=== PATIENT | female | born 1985 | race Caucasian/White ===

== ENCOUNTER → 2018-03-05 13:40 | Outpatient (CLI) | payer OTHER, SELFPAY ==
--- NOTE | 2018-03-05 13:49 | CT_ITS ---
STUDY: CT CHEST WITHOUT CONTRAST REASON FOR EXAM: Female, 32 years old. History of cough and possible pneumonia. RADIATION DOSAGE (If Supplied By Facility): CTDIvol = ( 7.77 ) mGy, DLP = ( 277.48 ) mGycm TECHNIQUE: Transaxial imaging was performed without the administration of intravenous contrast material. Multiplanar coronal and sagittal images were reformatted. Individualized dose optimization techniques were used for this CT. COMPARISON: Comparison is made with prior study dated May 06, 2016. FINDINGS: Small bilateral benign-appearing axillary lymph nodes. The lungs are normal. There is no demonstrated pleural abnormality. Normal heart and pericardium. Normal mediastinum. Normal hilar regions. Normal unenhanced pulmonary arteries. Normal aorta arch and descending thoracic aorta. Normal osseous structures. There is no demonstrated abnormality of the visualized upper abdomen. CT/Chest without Contrast IMPRESSION: Normal unenhanced CT Chest examination. Electronically Signed: Francisco Truong MD at 14:35 EST Tel [phone], Service support ,
== END ==
PROVIDERS: Family Provider Family Medicine; PCP Family Medicine; Referring Provider Family Medicine; Visit Provider Family Medicine
DX: J18.9 Pneumonia, unspecified organism (principal)
CPT/HCPCS: 71250

== ENCOUNTER → 2019-04-15 | Outpatient (CLI) | payer OTHER, SELFPAY ==
[2019-04-19 15:09] LABS: HPV APTIMA, High Risk Negative (Negative)
== END | disposition home or self-care (01) ==
PROVIDERS: PCP Family Medicine; Referring Provider Obstetrics & Gynecology; Visit Provider Obstetrics & Gynecology
DX: Z12.4 Encounter for screening for malignant neoplasm of cervix (principal)
CPT/HCPCS: 87624; 88175; G0145

== ENCOUNTER 2022-07-19 05:15 | Emergency (ER) | payer OTHER, SELFPAY ==
[2022-07-19 05:16] VITALS: BP 110/68; PULSE 62; RESP 16; TEMP 36.5; O2SAT 97; BMI 25.8
[2022-07-19 05:53] VITALS: BP 110/68; PULSE 62; RESP 16; TEMP 36.5; O2SAT 97
--- NOTE | 2022-07-19 05:54 | EX.ED.VIS.EY ---
HPI History of Present Illness Chief Complaint: Eye Problem Narrative Narrative: Patient presents with bilateral eye irritation. Patient started with sore throat on Thursday. She was seen at urgent care that day. They did strep test which was negative. It sounds like they gave her a dose of Decadron once. Her sore throat got better but is now starting to come back. He is not having fevers or coughing. She does have nasal congestion runny nose. About a day after she was seen she started to get irritation in her eye. It started in her right eye. She had been out at a baseball game with her children. The next day that both eyes were involved. They are tearing. They are burning and itching a bit. They are not really having visual loss. They do have some discharge. She states that 2 or 3 days ago her eyes were swollen shut. But she can open them well now. She was seen again in urgent care. They gave her ofloxacin eyedrops. But she is wondering if these might be more irritating to her eyes. She had an issue with eye irritation from Polytrim eyedrops when she was a child. Patient also works as a teacher music. She did not go to school yesterday but reportedly 5 children in her class were out with some issues that she thinks was related to eyes. Patient has a history of some allergies and does have nasal congestion but her symptoms overall seem different to her than allergies. [facility] Medical History Abnormal chest CT Asthma Cough Gastroesophageal reflux Migraines paresthesia right ulnar hand Pleurisy Pleuritic chest pain Pneumonia Seasonal allergic rhinitis Home Medications albuterol sulfate 90 mcg/actuation aerosol inhaler (ProAir HFA) 2 puff inhalation Q6H PRN breathing 06/22/17 [History Last Taken Unknown] fluticasone propionate 50 mcg/actuation nasal spray,suspension (Flonase Allergy Relief) 1 spray intranasal QDAY 06/22/17 [History Last Taken Unknown] loratadine 10 mg tablet (Allergy Relief (loratadine)) 10 mg PO QDAY 06/22/17 [History Last Taken Unknown] norethindrone-e.estradiol triphasic 0.5 mg/0.75 mg/1 mg-35 mcg tablet (Pirmella) 1 tab PO QDAY 06/22/17 [History Last Taken Unknown] omeprazole 40 mg capsule,delayed release 40 mg PO QDAY 06/22/17 [History Last Taken Unknown] diclofenac sodium 0.1 % eye drops 1 drp EACH EYE Q6H 3 days #2.5 mL 07/19/22 [Rx Last Taken Unknown] Allergy/AdvReac Type Severity Reaction Status Date / Time polymyxin B sulfate Allergy Swelling Verified 12/27/15 11:26 [From Polytrim] trimethoprim [From Polytrim] Allergy Swelling Verified 12/27/15 11:26 Family History Father Diabetes Hypertension Grandmother Breast cancer Grandfather Heart disease CVA (cerebral vascular accident) Grandmother Myeloma Grandfather Hypertension Surgical History History of bronchoscopy Social History Smoking Status: Never smoker second hand exposure: No alcohol intake: never substance use type: does not use ROS ROS ED Constitutional Constitutional ED: Denies chills, fever(s) or sweats Eyes Eyes: Reports other Details: History of present illness ENT ENT ED: Reports rhinorrhea, sore throat and other Details: Nasal congestion also. See history of present illness. Cardiovascular Cardiovascular: Denies chest pain Respiratory/Chest Respiratory/Chest: Denies cough or dyspnea Gastrointestinal Gastrointestinal: Denies nausea or vomiting Musculoskeletal Musculoskeletal: Denies myalgias Integumentary Denies rash Neurologic Neurologic: Denies headache(s) Hematologic/Lymphatic Hematologic/Lymphatic: Denies easy bleeding or easy bruising Allergic/Immunologic Allergic/Immunologic ED: Denies urticaria EXAM Physical Exam Narrative Exam Narrative: Patient is awake alert. No acute distress. Sitting comfortably in bed. HEENT shows no erythema or rash anywhere on her face ears or nose. No vesicles. There is some mild nasal congestion. Throat has minimal erythema but no exudate or swelling. Voice is normal. No sinus tenderness. Eyes do show bilateral conjunctival injection and mild inflammation. There is increased tearing. There is no actual discharge right now although she has had some. I see no stye. Cornea looks quite clear. Pupil is normal reactive to light and accommodates. There is no notable photophobia using a light. Neck is supple without lymphadenopathy Lungs are clear and breathing is easy and unlabored. Saturations are normal at 97% on room air showing no hypoxia. No peripheral rashes are noted. Const Vital Signs: 07/19/22 05:16 07/19/22 05:53 Temperature 97.7 F L 97.7 F L Temperature Source Oral Oral Pulse Rate 62 62 Respiratory Rate 16 16 Blood Pressure 110/68 110/68 Blood Pressure Mean 82 82 Pulse Ox 97 97 Oxygen Delivery Method Room Air Room Air MDM MDM MDM Narrative Medical decision making narrative: I do not see any indication of bacterial conjunctivitis. She has no known risk factor for this. She evidently has multiple children that she is exposed to who may have similar symptoms although were not 100% sure of that. She is not having significant discharge. She has some but it is mild. It is possible her symptoms are allergic but it sounds like it started in her right eye and then moved to both eyes. My suspicion is that this is likely a viral conjunctivitis. She may be also having increased irritation due to the antibiotic drops. As this is not likely bacterial I do not think she needs the antibiotic drops. She is not having visual changes. We will recheck her for strep. It is very possible she has been exposed to this. Evidently she and her whole family had strep about a month and a half ago and were on antibiotics. But her symptoms had resolved. As this is most likely viral, her symptoms will resolve with just symptomatic treatment. We may try some diclofenac drops to see if that will ease the inflammatory changes. Discharge Plan Triage Chief Complaint: Eye Problem ED Provider: Carl Wilkinson Dx/Rx/DC Orders Clinical Impression: Viral conjunctivitis, both eyes, URI, acute Instructions: ED Conjunctivitis, Viral, ED URI, Viral, No Abx (Adult) Prescriptions: New diclofenac sodium 0.1 % drops 1 drp EACH EYE Q6H 3 Days Qty: 2.5 0RF No Action albuterol sulfate [ProAir HFA] 90 mcg/actuation HFA aerosol inhaler 2 puff INHALATION Q6H PRN (Reason: breathing) norethin-e.estradiol triphasic [Pirmella] 0.5/0.75/1 mg- 35 mcg tablet 1 tab PO QDAY omeprazole 40 mg capsule,delayed release(DR/EC) 40 mg PO QDAY fluticasone propionate [Flonase Allergy Relief] 50 mcg/actuation spray,suspension 1 spray INTRANASAL QDAY loratadine [Allergy Relief (loratadine)] 10 mg tablet 10 mg PO QDAY Primary Care Provider: Josh Rolle Referrals: Hansel Vicente MD [Med Staff - Active Staff] - 2 Days for wound check Josh Rolle MD [Primary Care Provider] - 3-5 Days if not improving Disposition Disposition: Home, Self Care
[2022-07-19] MEDS: Tetracaine 0.5% Ophthalmic Bottle 1 DRP OPHTHALMIC (06:23)
[2022-07-19 06:27] VITALS: BP 102/68; PULSE 63; RESP 16; TEMP 36.5; O2SAT 98
[2022-07-19] MEDS: dexAMETHasone 4 MG Tablet 10 MG PO (06:56)
[2022-07-19 06:59] VITALS: BP 104/73; PULSE 73; RESP 16; TEMP 36.1; O2SAT 97
== END 2022-07-19 07:03 | disposition home or self-care (01) ==
PROVIDERS: Emergency Provider Emergency Medicine; PCP Family Medicine; Visit Provider Emergency Medicine
DX: J06.9 Acute upper respiratory infection, unspecified (principal); B30.9 Viral conjunctivitis, unspecified; J45.909 Unspecified asthma, uncomplicated
CPT/HCPCS: 87880; 99283

== ENCOUNTER 2022-09-01 08:55 | Emergency (ER) | payer OTHER, SELFPAY ==
[2022-09-01 08:56] VITALS: BP 133/86; PULSE 57; RESP 16; TEMP 36.8; O2SAT 100; BMI 28.2
--- NOTE | 2022-09-01 09:07 | EKG12_ITS ---
Test Reason : CP Blood Pressure : / mmHG Vent. Rate : 062 BPM Atrial Rate : 062 BPM P-R Int : 206 ms QRS Dur : 078 ms QT Int : 388 ms P-R-T Axes : 061 038 036 degrees QTc Int : 393 ms Normal sinus rhythm with sinus arrhythmia Normal ECG Confirmed by AISHA CARRASCO, CUCA ([id number]), research editor ROSIBEL ZAVALA ([id number]) on 09/03/2022 11:24:08 AM Referred By: LUKASZ Confirmed By:NUSRAT LEONARD MD
--- NOTE | 2022-09-01 09:07 | RAD_ITS ---
STUDY: X-RAY CHEST REASON FOR EXAM: Female, 36 years old. Chest pain and chest tightness. TECHNIQUE: Single AP portable view of the chest. COMPARISON: None. FINDINGS: EKG electrodes are seen. The lungs are clear and expanded. There is no demonstrated pleural abnormality. Normal size heart. Normal mediastinum and ronald. Normal visualized pulmonary arteries. Normal visualized aortic arch and descending thoracic aorta. Normal visualized thoracic spine. Normal visualized ribs, clavicles, and shoulders. There is no demonstrated abnormality of the visualized soft tissue structures of the upper abdomen. RAD/Chest 1 View (Portable) IMPRESSION: Normal x-ray examination of the chest. Electronically Signed: Francisco Truong MD at 9:34 EDT ,
--- NOTE | 2022-09-01 09:08 | ED.VIS.CHEST ---
HPI History of Present Illness Chief Complaint: Chest Pain Informant: patient and spouse/S.O. Onset/Context/Timing Onset: Today and Hours Activity at onset: gradual Timing: Intermittent Quality: Positive for Dull and Tightness Location: Left Parasternal and Left Chest Current Severity: Mild Maximum Severity: Mild Worsened By: Nothing Relieved By: Nothing Associated Symptoms: Negative for Nausea, Vomiting, Diaphoresis, Dyspnea, Cough, Fever, Lightheadedness, Acid Reflux or Palpitations Narrative Narrative: 36-year-old female without any significant past medical or surgical history. No prior history of DVT or PE. Prior history of pleurisy. Over the last week she flew to [place] and took [address] back. Denies any calf pain or swelling. No hemoptysis. Today she feels tightness and discomfort in her left chest. No radiation. Nothing particular makes the pain better or worse. She does not feel short of breath. She has had no hemoptysis. No cough or fever. Prior Similar Symptoms: No Recent Illness/Hospitalization: No CVD Risk Factors: Negative for Hypertension, Diabetes, Hypercholesterolemia, Family History 1' </=55 or Smoking PE Risk Factors: Positive for Recent Travel/Surgery; Negative for Recent Immobilization, Prior DVT or PE, Cancer or OCP + Smoking + >/=35 TAD Risk Factors: Negative for Marfan's Syndrome [facility] Medical History Abnormal chest CT Asthma Cough Gastroesophageal reflux Migraines paresthesia right ulnar hand Pleurisy Pleuritic chest pain Pneumonia Seasonal allergic rhinitis Medical History no medical history Home Medications albuterol sulfate 90 mcg/actuation aerosol inhaler (ProAir HFA) 2 puff inhalation Q6H PRN breathing 06/22/17 [History Last Taken Unknown] fluticasone propionate 50 mcg/actuation nasal spray,suspension (Flonase Allergy Relief) 1 spray intranasal QDAY 06/22/17 [History Last Taken Unknown] loratadine 10 mg tablet (Allergy Relief (loratadine)) 10 mg PO QDAY 06/22/17 [History Last Taken Unknown] norethindrone-e.estradiol triphasic 0.5 mg/0.75 mg/1 mg-35 mcg tablet (Pirmella) 1 tab PO QDAY 06/22/17 [History Last Taken Unknown] omeprazole 40 mg capsule,delayed release 40 mg PO QDAY 06/22/17 [History Last Taken Unknown] diclofenac sodium 0.1 % eye drops 1 drp EACH EYE Q6H 3 days #2.5 mL 07/19/22 [Rx Last Taken Unknown] Allergy/AdvReac Type Severity Reaction Status Date / Time polymyxin B sulfate Allergy Swelling Verified 09/01/22 09:00 [From Polytrim] trimethoprim [From Polytrim] Allergy Swelling Verified 09/01/22 09:00 Family History Father Diabetes Hypertension Grandmother Breast cancer Grandfather Heart disease CVA (cerebral vascular accident) Grandmother Myeloma Grandfather Hypertension Surgical History History of bronchoscopy Social History Smoking Status: Never smoker second hand exposure: No alcohol intake: never substance use type: does not use ROS ROS ED ROS Narrative Chest discomfort. Review of Systems ROS Unobtainable: Denies due to encephalopathy Constitutional Constitutional ED: Denies chills or fever(s) Eyes Eyes: Reports none ENT ENT ED: Denies ear pain, rhinorrhea or sore throat Cardiovascular Cardiovascular: Reports as per HPI and chest pain; Denies orthopnea, palpitations, paroxysmal nocturnal dyspnea or racing heartbeat Respiratory/Chest Respiratory/Chest: Denies cough, dyspnea, dyspnea on exertion, orthopnea, paroxysmal nocturnal dyspnea or sputum Gastrointestinal Gastrointestinal: Denies abdominal pain Genitourinary Genitourinary ED: Denies dysuria or hematuria Integumentary Denies abscess Neurologic Neurologic: Denies headache(s) Psychiatric Psychiatric: Denies anxiety Endocrine Endocrinology: Denies cold intolerance Hematologic/Lymphatic Hematologic/Lymphatic: Denies easy bleeding or easy bruising Allergic/Immunologic Allergic/Immunologic ED: Denies mouth swelling or tongue swelling EXAM Physical Exam Narrative Exam Narrative: Well-appearing 36-year-old female. Vital signs are stable and she is afebrile. Patient does not look septic toxic or in distress. Significant other at bedside. H EENT exam is unremarkable. Neck is nontender. Lungs are clear equal symmetrical bilaterally. Heart regular rate and rhythm no murmur. Chest wall nontender. No ecchymosis or bruising. No redness or warmth. Abdomen is soft and nontender. Moving all 4 extremities. Calves are nontender without edema or cords. No swelling. Radial pulses are equal symmetrical. Back is nontender neurologic exam she is awake alert. No focal motor deficits. Very benign exam. Pulse ox 100% on room air no hypoxia. Const Vital Signs: 09/01/22 08:56 09/01/22 09:11 Temperature 98.2 F Temperature Source Oral Pulse Rate 57 L Respiratory Rate 16 Blood Pressure 133/86 H Blood Pressure Mean 101 Pulse Ox 100 Oxygen Delivery Method Room Air Room Air Positive well nourished and well developed; Negative for obese, cachectic, contractures or unkempt General Appearance ED: well developed and NAD; Negative for unkempt, cachectic, contractures or pallor Nutritional Appearance: Negative for cachectic or obese HEENT Reports moist mucous membranes normocephalic and atraumatic; Negative for trauma or tenderness Eyes PERRL and EOMs intact bilaterally General Eye ED: Negative for pale conjunctiva or scleral icterus Neck no lymphadenopathy, supple and no JVD General: Negative for tenderness Chest Wall inspection of chest normal and palpation of chest normal Chest: Negative for tenderness Resp normal respiratory effort and clear to auscultation bilaterally Effort and Inspection: Negative for respiratory distress Auscultation: Negative for rales, rhonchi or wheezes Cardio regular rate, regular rhythm, S1 normal heart sound, S2 normal heart sound and no murmurs Peripheral Pulses: pulses 2+ throughout GI normal to inspection, nondistended, normoactive bowel sounds, soft to palpation, non-tender, non-distended and no masses Auscultation: Negative for hyperactive bowel sounds Back/Spine no CVA tenderness and no thoracic nor lumbar tenderness General Back: Negative for CVA tenderness Cervical Spine: Negative for cervical spine tenderness Extremity normal to inspection General Extremety ED: Negative for edema General Extremity: Negative for edema Neuro oriented x3 and CN's II-XII intact bilaterally Sensorium / Orientation: awake, alert, oriented to person, oriented to place and oriented to time; Negative for confused, lethargic or stuporous Motor Exam: strength 5/5 throughout Psych mental status grossly normal Appearance: Negative for unkempt Attitude: No agitated Mood & Affect: Negative for depressed, anxious or tearful Skin no rashes or lesions noted and no wounds General Skin Exam: Negative for jaundice or pallor Rashes: No rashes noted Trauma: Negative for abrasion or laceration Heart Score History: Slightly/Non-Suspicious ECG: Normal Age: </= 45 years Risk Factors: No Risk Factors Troponin: </= Normal Limit Score: 0 MDM MDM MDM Narrative Medical decision making narrative: 36-year-old female no seen past medical history with atypical left-sided, nonreproducible chest discomfort. Vital signs are stable. Unlikely to be cardiac given her age and no significant past medical history or risk factors. She is a non-smoker. Unlikely to be a pulmonary embolus but possible due to her recent travel without her only risk factor and she has never had a DVT or PE. She is not on any hormone replacement or control pills. Possibly could be pleurisy but is not really pleuritic in nature. There is no reproducible chest wall pain. She has no symptoms or signs of an infection at this time. Cardiac work-up will be done. She will have a D-dimer. Repeat exam patient is doing well at 10:40 AM. She and her went over all of her test results. Clinically looks good. I do not think she needs any further testing. I explained to them that this this may be pleurisy. Her musculoskeletal. Tylenol Motrin for pain. Return if worse or follow-up if not improving. History & Record Review Discussion w/independent historian: Patient Additional record(s) reviewed:: Prior inpatient record, Prior outpatient record, Prior ED visit and Prior labs Lab Data Attestation: I reviewed the patient's lab results. Lab results narrative: CBC unremarkable. White count of 6.7. H&H of 14 and 41. Platelets 209. Electrolytes show a gap of 2. Normal BUN and creatinine. Glucose is 87. Troponin is less than 3. test negative. D-dimer is 0.3 and negative. Labs: Laboratory Results - last 24 hr 09/01/22 09:00 WBC 6.7 RBC 4.60 Hgb 14.5 Hct 41.7 MCV 90.7 MCH 31.5 MCHC 34.8 RDW Std Deviation 39.8 RDW Coeff of Joy 12.1 Plt Count 209 MPV 8.8 Immature Gran % (Auto) 0.400 Neut % (Auto) 56.0 Lymph % (Auto) 35.9 [place] % (Auto) 6.6 Eos % (Auto) 0.7 Baso % (Auto) 0.4 Absolute Neuts (auto) 3.8 Absolute Lymphs (auto) 2.41 Nucleated RBC % 0 D-Dimer Quant (PE/DVT) 0.30 Sodium 137 Potassium 3.7 Chloride 109 H Carbon Dioxide 26.0 Anion Gap 2 L BUN 14 Creatinine 0.69 Estim Creat Clear Calc 93.24 Est GFR (MDRD) Af Amer 124 Est GFR (MDRD) Non-Af 102 BUN/Creatinine Ratio 20.4 H Glucose 87 Calcium 9.1 Troponin I High Sens < 3 L Serum , Qual NEGATIVE Radiography Chest X-Ray - ED: Read by ED Physician, Read by Radiologist, Heart, Lungs, Mediastinum, Bony Structures and No Acute Disease Diagnostic Testing: Clinical Impression(s) from Imaging Studies Chest X-Ray 09/01/22 09:07 IMPRESSION: Normal x-ray examination of the chest. Electronically Signed: Francisco Truong MD at 9:34 EDT , Chest x-ray, portable, single view interpreted both by myself and the radiologist shows no acute abnormality. Normal lungs bilaterally. Normal cardiac silhouette mediastinum. No infiltrate. No pneumothorax. No acute bony abnormalities. Rhythm Strip Rhythm Strip: Sinus Rhythm Rate: 62 Ectopy: None EKG Initial EKG: Attestation: I personally reviewed and interpreted this EKG as follows: Interpretation: Sinus Rhythm and No Acute Injury Pattern Comments: Normal sinus rhythm rate of 62 no acute signs of AL or ischemia. No [id number]. No old EKG available. Prior EKG tracings: available for review Discharge Plan Triage Chief Complaint: Chest Pain ED Provider: Karthikeyan Vasquez Dx/Rx/DC Orders Clinical Impression: Chest pain Instructions: ED Chest Pain, Uncertain Cause Prescriptions: No Action albuterol sulfate [ProAir HFA] 90 mcg/actuation HFA aerosol inhaler 2 puff INHALATION Q6H PRN (Reason: breathing) norethin-e.estradiol triphasic [Pirmella] 0.5/0.75/1 mg- 35 mcg tablet 1 tab PO QDAY omeprazole 40 mg capsule,delayed release(DR/EC) 40 mg PO QDAY fluticasone propionate [Flonase Allergy Relief] 50 mcg/actuation spray,suspension 1 spray INTRANASAL QDAY loratadine [Allergy Relief (loratadine)] 10 mg tablet 10 mg PO QDAY diclofenac sodium 0.1 % drops 1 drp EACH EYE Q6H 3 Days Qty: 2.5 0RF Primary Care Provider: Josh Rolle Referrals: Josh Rolle MD [Primary Care Provider] - 1 Week if not improving Activity Restrictions/Additional Instructions: All your test today were normal including blood counts, electrolytes, kidney function, heart enzymes and D-dimer which was negative which goes against this being a blood clot. Chest x-ray and EKG were normal. Motrin and Tylenol for discomfort. Follow-up if not improving. Disposition Disposition: Home, Self Care
[2022-09-01 09:17] LABS: Absolute Lymphocyte Count 2.41 X10^3/uL (0.83-4.51); Absolute Neutrophil Count 3.8 X10^3/uL (2.0-7.7); Basophil# 0.03 X10^3/uL; Basophil% 0.4 % (0-1); Eosinophil# 0.05 X10^3/uL; Eosinophils% 0.7 % (0-5); Hematocrit 41.7 % (37-47); Hemoglobin 14.5 g/dL (12.0-15.0); Lymphocyte # 2.41 X10^3/ul (0.83-4.51); Lymphocyte % 35.9 % (19-41); Mean Corp Hgb Conc 34.8 g/dL (32-36); Mean Corpuscular Hgb 31.5 pg (27.0-32.0); Mean Corpuscular Volume 90.7 fL (81-99); Mean Platelet Vol. 8.8 fl (6.2-12.0); Monocyte# 0.44 X10^3/uL; Monocyte% 6.6 % (0-10); NRBC Flagged by Analyzer 0 % (0-5); Neutrophil # 3.75 X10^3/uL (2.7-7.7); Platelet Count 209 K/mm3 (150-450); RBC Distribution Width CV 12.1 % (11.6-14.6); RBC Distribution Width SD 39.8 fl (35.1-43.9); White Blood Count 6.7 K/mm3 (4.4-11.0)
[2022-09-01 09:44] LABS: Internal QC Validated? YES +Cl - CLEAR BKGD; Pregnancy, Serum, hCG Quali. NEGATIVE Negative
[2022-09-01 09:50] LABS: Anion Gap 2 (5-15); BUN 14 mg/dL (7-18); BUN/Creat Ratio 20.4 RATIO (10-20); Calcium,Total 9.1 mg/dL (8.5-10.1); Chloride 109 mmol/L (98-107); Creatinine, Serum 0.69 mg/dL (0.55-1.02); EST Glomerular Filtration Rate 102 mL/min (>60); Est Glom Filt Rate - Afr Amer 124 mL/min (>60); Estimated Creatinine Clearance 93.24 ml/min; Glucose 87 mg/dL (74-106); Potassium 3.7 mmol/L (3.5-5.1); Sodium Level 137 mmol/L (136-145); Troponin-I HS < 3 pg/mL (3.0-54.0)
[2022-09-01 11:24] VITALS: BP 126/78; PULSE 67; RESP 14; TEMP 36.6; O2SAT 99
--- NOTE | 2022-09-01 14:22 | CHAPLAIN ---
Type of Pastoral Visit _x__ Initial Visit ___ Follow-up Visit ___ On-call Visit ___ General Patient Visit ___ Spiritual Assessment ___ Family Conference ___ Bereavement ___ Rapid Response ___ Code Blue ___ Other (describe below) Pastoral Care Referral From _x__ Patient _x_ Family ___ Nurse ___ Physician ___ Curb And Gutter Laborer ___ Regrinder Operator ___ Other (describe below) Sacrament/Intervention _x__ Active listening ___ Anointing ___ Gnosticist ___ Bereavement ___ Communion ___ Bel exploration ___ ___ Life review ___ Prayer ___ Reconciliation ___ Sacrament of Sick _x__ Supportive presence ___ Wedding ___ Other (describe below) Pastoral Comments met with patient and spouse as pt is being discharged; offer of presence and support received well but pt is glad to be going home and have potential health issues ruled out at this time
== END 2022-09-01 11:26 | disposition home or self-care (01) ==
PROVIDERS: Emergency Provider Emergency Medicine; PCP Family Medicine; Visit Provider Emergency Medicine
DX: R07.9 Chest pain, unspecified (principal); J45.909 Unspecified asthma, uncomplicated
CPT/HCPCS: 71045; 80048; 84484; 84703; 85025; 85379; 93005; 99284

== ENCOUNTER → 2025-01-19 | Outpatient (CLI) | payer SELFPAY ==
--- NOTE | 2025-01-19 14:21 | RAD_ITS ---
PROCEDURE: CHEST PA AND LATERAL 01/19/2025 REASON FOR EXAM: COUGH TECHNIQUE: Procedure Code: RADCXR Modality: DX Procedure: CHEST PA AND LATERAL COMPARISON: Portable chest, 09/01/2022. FINDINGS: There is bilateral perihilar peribronchial thickening consistent with viral pneumonia or acute bronchitis. There is no lobar consolidation or pleural effusion. The heart borders mediastinum and pulmonary vascular pattern are normal. The upper abdominal bowel gas pattern is normal. There are no bony abnormalities of the chest. RAD/Chest PA and Lateral IMPRESSION: Findings consistent with viral pneumonia or acute bronchitis. Reading Location: [place] [id number]
--- OUTSIDE RECORDS SUMMARY | 2025-01-19 19:12 | XMS RPT_ITS | CCD ---
Author Organization [facility] Inform ion Partnership [employer] [facility] Care Team Providers Care Art Studio Teacher Name Role Phone Natalya Sandoval LPN Unavailable UnavailKarthikeyan Le Attending Unavailable Brendan Rolle Primary Care Unavailable Brendan Rolle Primary Care Unavailable Carl Wilkinson Attending Unavailable Brendan Rolle MD Primary Care Provider [phone] BRENDAN ROLLE Primary Care Unavailable SELF Referring Unavailable MONIE ROSAS Attending Unavailable BRENDAN ROLLE Primary Care Unavailable Allergies Allergy Classification Reported Allergen(s) Allergy Type Date of Onset Reaction(s) Facility (2 sources) Lidocaine; Translations: [LIDOCAINE] Drug Allergy 6 shaking, passing out - local anesthetics (varghese - lidocaine) [facility] Work Phone: (1 source) Polymyxin B / Trimethoprim Drug Allergy 6 red itchy eyes [facility] Work Phone: (1 source) Trimethoprim Drug Allergy 3 Swelling [facility] (2 sources) polymyxin B sulfate; Translations: [polymyxin B sulfate] Allergy to substance 3 [facility] (1 source) Trimethoprim Drug Allergy 3 [facility] Repository (2 sources) Lidocaine; Translations: [LIDOCAINE HCL] Drug Allergy 8 Anaphylaxis [facility] (2 sources) Polymyxin B / Trimethoprim; Translations: [POLYMYXIN B SULF-TRIMETHOPRI M] Drug Allergy 8 Swelling [facility] Work Phone: Medications Current Medications Medication Drug Class(es) Dates Sig (Normalized) Sig (Original) [id number] actuat albuterol 0.09 mg/actuat metered dose inhaler (3 sources) beta2-Adrenergic Agonist Start: 06-22-2017 take 1 puff(s) by inhalation every six hours Albuterol Sulfate (Proair Hfa) 90 mcg/actuation HFA aerosol inhaler Active 2 PUFF INHALATION EVERY 6 HOURS June 22, 2017 12:00am Start: 02-04-2016 take 2 puff(s) by in halation every four hours as needed PROAIR HFA 108 (90 Base) MCG/ACT AERS INH 2 puffs q4h as needed ALBUTEROL SULFATE [id number] Natalya Sandoval MARKETING CONSULTANT Start: 03-03-2009 take 1-2 puff(s) by inhalation every four hours as needed ALBUTEROL 90 MCG/ACTUATION AEROSOL INHALER 1-2 puffs every 4 hours as needed for wheezes 1 0 03/03/2009 Active cholecalciferol 0.05 mg oral capsule (1 source) Vitamin D Start: 05-27-2013 take 1 capsule by mouth once daily Cholecalciferol, Vitamin D3, 2,000 unit cap Take 1 capsule by mouth once daily. 90 capsule 4 05/27/2013 Active diclofenac sodium 1 mg/ml ophthalmic solution (1 source) Nonsteroidal Anti-inflammatory Drug Start: 07-19-2022 Diclofenac Sodium Active 1 DRP EACH EYE EVERY 6 HOURS 2.5 3 July 19, 2022 12:00am drospirenone / Ethinyl Estradiol / levomefolate (1 source) Progestin, Estrogen Start: 11-22-2013 take 1 tablet by mouth once daily drospirenone-e.estrad iol-lm.FA (BEYAZ) 3-0.02-0.451 mg (24) tab Take 1 tablet by mouth once daily. 90 tablet 3 11/22/2013 Active Norethin-E.Estradiol Triphasic (5 sources) Estrogen Start: 06-22-2017 take 1 tablet by mouth once daily Norethin-E.Estradiol Triphasic (Pirmella) 0.5/0.75/1 mg- 35 mcg tablet Active 1 TABLET PO daily June 22, 2017 12:00am Start: 02-12-2016 take 1 tablet by adam th once daily PIRMELLA 7/7/7 0.5/0.75/1-35 MG-MCG TABS One tablet by mouth daily NORETHIN-ETH ESTRAD TRIPHASIC [id number] Natalya Chhaya Sandoval MARKETING CONSULTANT Start: 02-04-2016 take 1 tablet by adam th once daily PIRMELLA 1/35 1-35 MG-MCG TABS One tablet by mouth daily NORETHINDRONE-ETH ESTRADIOL [id number] Natalya Chhaya Sandoval MARKETING CONSULTANT Start: 02-04-2016 End: 02-12-2016 take 1 tablet by mouth once daily PIRMELLA 1/35 1-35 MG-MCG TABS One tablet by mouth daily NORETHINDRONE-ETH ESTRADIOL [id number] Natalya Chhaya Sandoval MARKETING CONSULTANT Start: 12-27-2015 End: 06-22-2017 Norethin-E.Estradiol Triphas ic Discontinued 1 EACH PO DAILY December 27, 2015 12:00am June 22, 2017 10:41am fluticasone propionate 0.05 mg/actuat metered dose nasal spray (2 sources) Corticosteroid Start: 06-22-2017 Fluticasone Pr opionate (Flonase Allergy Relief) 50 mcg/actuation spray,suspension Active 1 SPRAY INTRANASAL daily June 22, 2017 12:00am Start: 03-11-2016 take 1 spray(s) nasa l route once daily FLONASE ALLERGY RELIEF 50 MCG/ACT SUSP 1 spray in each nostril daily FLUTICASONE PROPIONATE [id number] Mckinley Zarco DO loratadine 10 mg oral tablet (2 sources) Start: 06-22-2017 take 1 tablet by mouth once daily Loratadine (Allergy Relief (Loratadine)) 10 mg tablet Active 10 MG PO daily June 22, 2017 12:00am Start: 12-02-2016 take 1 tablet by adam th once daily ALLERGY RELIEF TABS One tablet by mouth daily LORATADINE TABS [id number] Rita De La Cruz omeprazole 40 mg delayed release oral capsule (2 sources) Proton Pump Inhibitor Start: 06-22-2017 take 40 mg by mouth once daily Omeprazole Active 40 MG PO daily June 22, 2017 12:00am Start: 02-12-2016 take 1 tablet by adam th once daily OMEPRAZOLE 40 MG CPDR 1 tablet by mouth daily OMEPRAZOLE [id number] Shanelle Alfaro SUBSTANCE ABUSE THERAPIST VIT/IRON FUMARATE/F A ( ORAL) (1 source) VIT/IRO N FUMARATE/FA ( ORAL) Take by mouth. Active Completed/Discontinued Medications Medication Drug Class(es) Dates Sig (Normalized) Sig (Original) amoxicillin 875 mg / clavulanate 125 mg oral tablet (2 sources) Penicillin-class Antibacterial Start: 03-05-2016 End: 04-24-2016 take 1 tablet by mouth twice daily AUGMENTIN 875-125 MG TABS 1 tab by mouth twice daily AMOXICILLIN-POT CLAVULANATE [id number] Shanelle Alfaro SUBSTANCE ABUSE THERAPIST baclofen 10 mg oral tablet (3 sources) gamma-Aminobutyric Acid-ergic Agonist Start: 02-12-2016 End: 02-12-2016 take 1-2 tablets by mouth once daily BACLOFEN 10 MG TABS 1-2 tabs po daily BACLOFEN [id number] Mckinley Zarco DO Start: 12-27-2015 End: 06-22-2017 take 10-20 mg by mouth every eight hours Baclofen Discontinued 10 - 20 MG PO Q8H December 27, 2015 12:00am June 22, 2017 10:41am beclomethasone 0.08 mg/actuat inhalant solution (4 sources) Corticosteroid Start: 12-02-2016 End: 12-02-2016 QVAR 80 MCG/ACT AERS 1 INH daily BECLOMETHASONE DIPROPIONATE [id number] Mckinley Zarco DO Start: 03-11-2016 End: 06-05-2016 take 2 puff(s) by inhalation twice daily QVAR 80 MCG/ACT AERS INH 2 puffs twice daily BECLOMETHASONE DIPROPIONATE [id number] Mckinley Zarco DO 12 hr chlorpheniramine polistirex 1.6 mg/ml / HYDROcodone polistirex 2 mg/ml extended release suspension (1 source) Histamine-1 Receptor Antagonist, Opioid Agonist Start: 02-26-2016 TUSSIONEX PENNKINETIC ER 10-8 MG/5ML SUER 1 tsp q12h as needed HYDROCOD POLST-CHLORPHEN POLST [id number] Natalya Sandoval MARKETING CONSULTANT 120 actuat formoterol fumarate 0.005 mg/actuat / mometasone furoate 0.2 mg/actuat metered dose inhaler (2 sources) Corticosteroid, beta2-Adrenergic Agonist Start: 02-04-2016 End: 02-12-2016 take 2 puff(s) by inhalation twice daily DULERA 200-5 MCG/ACT AERO INH 2 puffs twice daily MOMETASONE FURO-FORMOTEROL FUM [id number] Natalya Gabrielach MARKETING CONSULTANT 12 hr guaiFENesin 600 mg extended release oral tablet (2 sources) Start: 02-04-2016 End: 02-12-2016 take 1 tablet by mouth once daily MUCINEX 600 MG [id number] One tablet by mouth daily GUAIFENESIN [id number] Natalya Gabrielach MARKETING CONSULTANT levoFLOXacin 750 mg oral tablet (1 source) Quinolone Antimicrobial Start: 12-27-2015 End: 06-22-2017 take 750 mg by mouth once daily Levofloxacin Discontinued 750 MG PO DAILY December 27, 2015 12:00am June 22, 2017 10:40am meloxicam 7.5 mg oral tablet (2 sources) Nonsteroidal Anti-inflammatory Drug Start: 02-04-2016 End: 02-12-2016 take 1 tablet by mouth once daily MELOXICAM 7.5 MG TABS One tablet by mouth daily MELOXICAM [id number] Natalya Gabrielach MARKETING CONSULTANT methylPREDNISolone 4 mg oral tablet (1 source) Corticosteroid Start: 12-27-2015 End: 06-22-2017 Methylprednisolone Discontinued 4 MG PO DIRECTED December 27, 2015 12:00am June 22, 2017 10:41am montelukast 10 mg oral tablet (2 sources) Leukotriene Receptor Antagonist Start: 02-04-2016 End: 02-12-2016 take 1 tablet by mouth once daily MONTELUKAST SODIUM 10 MG TABS One tablet by mouth daily MONTELUKAST SODIUM [id number] Natalya Gabrielach MARKETING CONSULTANT Multivitamin preparation (2 sources) Start: 02-04-2016 take 1 tablet by mouth once daily MULTI-VITAMIN TABS One tablet by mouth daily MULTIPLE VITAMIN [id number] Natalya Chhaya Sandoval MARKETING CONSULTANT Start: 02-04-2016 End: 02-12-2016 take 1 tablet by mouth once daily MULTI-VITAMIN TABS One tablet by mouth daily MULTIPLE VITAMIN [id number] Natalya Chhaya Sandoval MARKETING CONSULTANT Oxymetazoline (2 sources) Start: 02-04-2016 AFRIN 12 HOUR 0.05 % SOLN 1-2 sprays each nostril prior to flight OXYMETAZOLINE HCL [id number] Natalya Chhaya Sandoval MARKETING CONSULTANT Start: 02-04-2016 End: 02-12-2016 AFRIN 12 HOUR 0.05 % SOLN 1- 2 sprays each nostril prior to flight OXYMETAZOLINE HCL [id number] Natalya Chhaya Sandoval MARKETING CONSULTANT promethazine hydrochloride 1.25 mg/ml oral solution (2 sources) Phenothiazine Start: 02-04-2016 End: 02-26-2016 PROMETHAZINE HCL 6.25 MG/5ML SYRP 1 tsp q6h as needed PROMETHAZINE HCL [id number] Natalya Chhaya Sandoval MARKETING CONSULTANT pseudoePHEDrine hydrochloride 60 mg oral tablet (2 sources) alpha-Adrenergic Agonist Start: 02-04-2016 End: 02-12-2016 take 1 tablet by mouth every four to six hours PSEUDOEPHEDRINE HCL 60 MG TABS 1 tab po prior to flying and q4-6h PSEUDOEPHEDRINE HCL [id number] Natalya Chhaya Sandoval MARKETING CONSULTANT RESPIRATORY THERAPY SUPPLIES (2 sources) Start: 02-04-2016 FLUTTER MILADIS Use device 3-5 times daily RESPIRATORY THERAPY SUPPLIES [id number] Natalya Chhaya Sandoval MARKETING CONSULTANT Start: 02-04-2016 End: 02-12-2016 FLUTTER MILADIS Use device 3-5 times daily RESPIRATORY THERAPY SUPPLIES [id number] Natalya Chhaya Sandoval MARKETING CONSULTANT traMADol hydrochloride 50 mg oral tablet (2 sources) Opioid Agonist Start: 02-04-2016 End: 02-12-2016 take 1 tablet by mouth every six hours as needed TRAMADOL HCL 50 MG TABS I tab po q6h as needed TRAMADOL HCL [id number] Natalya Shaver Lori PAUL Problems Active Problems Problem Classification Problem Date Documented Date Episodic/Chronic Asthma (1 source) Asthma; Translations: [Unspecified asthma, uncomplicated] Onset: 12-20-2008 Chronic Chronic obstructive pulmonary disease and bronchiectasis (1 source) Bronchitis, not specified as acute or chronic; Translations: [Sinobronchitis] Onset: 01-07-2025 Episodic Esophageal disorders (1 source) Gastroesophageal reflux disease; Translations: [Gastro-esophageal reflux disease without esophagitis] Onset: 02-12-2016 02-12-2016 Chronic Inflammation; infection of eye (except that caused by tuberculosis or sexually transmitteddisease) (1 source) Bilateral viral conjunctivitis; Translations: [Viral conjunctivitis, unspecified] 07-27-2022 Episodic Nonspecific chest pain (2 sources) Chest pain; Translations: [Chest pain, unspecified] Onset: 09-05-2022 09-01-2022 Episodic Other eye disorders (1 source) Ocular pain, bilateral; Translations: [Ocular pain, bilateral] Onset: 07-24-2022 Episodic Other upper respiratory disease (1 source) Seasonal allergic rhinitis; Translations: [Other seasonal allergic rhinitis] Onset: 02-12-2016 02-12-2016 Chronic Other upper respiratory infections (1 source) Chronic sinusitis, unspecified; Translations: [Sinobronchitis] Onset: 01-07-2025 Chronic Other upper respiratory infections (3 sources) Acute upper respiratory infection; Translations: [Acute upper respiratory infection, unspecified] 07-27-2022 Episodic Unclassified (1 source) 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; Translations: [ cystic hygroma] Onset: 08-01-2013 08-01-2013 Unclassified (1 source) ; Translations: [IUFD (intrauterine )] Onset: 10-24-2013 Unclassified (1 source) Acute cough; Translations: [Acute cough] Onset: 01-07-2025 Past or Other Problems Problem Classification Problem Date Documented Da te Episodic/Chronic Influenza (1 source) Influenza due to Influenza A virus; Translations: [Influenza due to other identified influenza virus with other respiratory manifestations] Onset: 12-20-2008 12-20-2008 Episodic Other complications of ; puerperium affecting management of mother (1 source) Disorder of structure; Translations: [Maternal care for (suspected) abnormality and damage, unspecified, not applicable or unspecified] Onset: 09-19-2013 Episodic Other lower respiratory disease (1 source) Pleuritic pain; Translations: [Pleurodynia] Onset: 02-12-2016 02-12-2016 Episodic Other lower respiratory disease (1 source) Cough; Translations: [Cough] Onset: 02-12-2016 02-12-2016 Episodic Other and delivery including normal (1 source) Normal ; Translations: [Encounter for supervision of other normal , unspecified trimester] Onset: 06-20-2013 Resolved: 11-17-2013 11-17-2013 Episodic Other screening for suspected conditions (not mental disorders or infectious disease) (1 source) Tomography - chest abnormal; Translations: [Other nonspecific abnormal finding of lung field] Onset: 02-26-2016 02-26-2016 Episodic Unclassified (1 source) paresthesia right ulnar hand 09-19-2021 Results Test Name Value Interpretation Reference Range Facility [facility] 01-07-2025 CNOV Office Visit (WOUCA) HUMA ROLLE ([id number]) 1985 F Date Time Provider Department 01/07/25 9:45 AM MONIE ROSAS WOJERAMINE During your visit today, we recorded the following information about you: Temperature Pulse Respiration Blood pressure 97.9 degrees 81/minute 18/minute 124/82 Weight 71.2 kg Monie Rosas APRN.CNP 01/07/2025 10:19 AM Signed [facility] Subjective Humacamryn Rolle is a 39 year old female. Patient presents with: Cough: Chest congestion, productive cough x1.5 weeks Cough The patient is a 39-year-old female presenting with worsening cough and congestion for over a week. The patient reports that her symptoms began as a mild cold but have progressively worsened over the past week. She is now experiencing persistent cough with significant sputum production, which is keeping her up at night and preventing her from sleeping. She also reports feeling very congested and unable to breathe well. She has not measured her temperature but suspects she may have had fevers in the mornings. This morning, she noticed her lips were swollen. She has been using an albuterol inhaler as needed, which she typically uses only when sick. She has also been taking an [id number]-juxskju mucolytic and tried a nighttime cough syrup last night, but it did not relieve her symptoms. She has used nasal steroids such as Flonase and Nasacort in the past when prescribed, and reports that her symptoms have often only improved after starting antibiotics. She denies significant seasonal allergies. She recalls a lung infection 8-10 years ago, after which she was told she might have prolonged symptoms after colds. She denies a formal asthma diagnosis and uses her inhaler only when sick. She has not used prednisone recently. She is allergic to eye drops and lidocaine. No one else at home is currently sick, though she thinks her daughter may be starting to get sick today. She is concerned about her worsening symptoms because she has a trip to [place] planned for this coming Thursday. She is hoping to recover in time for the trip and is worried about her symptoms getting worse. Review of Systems Respiratory: Positive for cough. Constitutional: (+) insomnia Ears/Nose/Mouth/T hroat: (-) sore throat Respiratory: (+) cough, (+) sputum production, (+) dyspnea Skin: (+) lip swelling PAST MEDICAL HISTORY Diagnosis Date Complication of anesthesia PAST SURGICAL HISTORY Procedure Laterality Date PAST SURGICAL HISTORY OF nono ALLERGIES Xylocaine [Lidocaine Hcl] and Polytrim [Polymyxin B Sulf-Trimethoprim ] MEDICATIONS albuterol HFA (PROVENTIL HFA, VENTOLIN HFA) 90 mcg/actuation inhaler Inhale 2 puffs as instructed every 4 hours as needed for wheezing/shortnes s of breath. amoxicillin-clavu lanate potassium (AUGMENTIN) 875-125 mg per tablet Take 1 tablet by mouth every 12 hours for 7 days. drospirenone-e.es tradiol-lm.FA (BEYAZ) 3-0.02-0.451 mg (24) tab Take 1 tablet by mouth once daily. (Patient not taking: Reported on 06/01/2024) Cholecalciferol, Vitamin D3, 2,000 unit cap Take 1 capsule by mouth once daily. (Patient not taking: Reported on 06/01/2024) VIT/IRON FUMARATE/FA ( ORAL) Take by mouth. (Patient not taking: Reported on 06/01/2024) ALBUTEROL 90 MCG/ACTUATION AEROSOL INHALER 1-2 puffs every 4 hours as needed for wheezes (Patient not taking: Reported on 06/01/2024) FAMILY HISTORY Problem Relation Age of Onset Breast Cancer Maternal Grandmother Heart Paternal Grandfather SOCIAL HISTORY[1] Objective BP 124/82 Pulse 81 Temp 36.6 ?C (97.9 ?F) Resp 18 Wt 71.2 kg (156 lb 15.5 oz) LMP 04/01/2013 SpO2 100% Physical Exam Constitutional: General: She is not in acute distress. Appearance: Normal appearance. She is normal weight. She is not ill-appearing or toxic-appearing. HENT: Head: Normocephalic and atraumatic. Right Ear: Ear canal and external ear normal. A middle ear effusion is present. Left Ear: Ear canal and external ear normal. A middle ear effusion is present. Nose: Mucosal edema, congestion and rhinorrhea present. Right Sinus: Maxillary sinus tenderness and frontal sinus tenderness present. Left Sinus: Maxillary sinus tenderness and frontal sinus tenderness present. Mouth/Throat: Pharynx: Uvula midline. Posterior oropharyngeal erythema and postnasal drip present. Tonsils: No tonsillar exudate or tonsillar abscesses. Cardiovascular: Rate and Rhythm: Normal rate and regular rhythm. Heart sounds: Normal heart sounds, S1 normal and S2 normal. Pulmonary: Effort: Pulmonary effort is normal. Breath sounds: Normal breath sounds. No decreased breath sounds, wheezing, rhonchi or rales. Neurological: Mental Status: She is alert. General: No acute distress. HEENT: Oropharynx inflamed. Resp: Lungs clear to auscultation, no wheezin (more content not included)... Normal [facility] CNOVon 06-01-2024 CNOV Office Visit (UCWSTR) HUMA ROLLE ([id number]) 1985 F Date Time Provider Department 06/01/24 7:15 PM [facility] During your visit today, we recorded the following information about you: Temperature Pulse Respiration Blood pressure 98.4 degrees 84/minute 16/minute 118/76 Weight 67.7 kg Rogelio Smith PA-C 06/01/2024 7:38 PM Signed This note was created using [employer] Subjective Huma Rolle is a 38 year old female. Patient is a 38-year-old female complains of congestion, sore throat and cough that she has been experiencing for the past 2 days. Patient denies fever, chills or myalgia. 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 Sore Throat Associated symptoms include congestion and coughing. Review of Systems HENT: Positive for congestion and sore throat. Respiratory: Positive for cough. All other systems reviewed and are negative. Objective BP 118/76 Pulse 84 Temp 36.9 ?C (98.4 ?F) (Tympanic) Resp 16 Wt 67.7 kg (149 lb 4 oz) LMP 04/01/2013 SpO2 97% Physical Exam Vitals and nursing note reviewed. Constitutional: Appearance: Normal appearance. She is normal weight. HENT: Head: Normocephalic and atraumatic. Right Ear: Tympanic membrane, ear canal and external ear normal. Left Ear: Tympanic membrane, ear canal and external ear normal. Nose: Nose normal. Mouth/Throat: Mouth: Mucous membranes are moist. Pharynx: Oropharynx is clear. Eyes: Extraocular Movements: Extraocular movements intact. Conjunctiva/scler a: Conjunctivae normal. Pupils: Pupils are equal, round, and reactive to light. Cardiovascular: Rate and Rhythm: Normal rate and regular rhythm. Pulses: Normal pulses. Heart sounds: Normal heart sounds. Pulmonary: Effort: Pulmonary effort is normal. Breath sounds: Normal breath sounds. Musculoskeletal: Cervical back: Normal range of motion and neck supple. Skin: General: Skin is warm and dry. Capillary Refill: Capillary refill takes less than 2 seconds. Neurological: General: No focal deficit present. Mental Status: She is alert and oriented to person, place, and time. Psychiatric: Mood and Affect: Mood normal. Behavior: Behavior normal. Thought Content: Thought content normal. Judgment: Judgment normal. Assessment and Plan Physical exam findings as noted above. Rapid strep test is negative. Supportive care instructions were discussed and the patient verbalizes excellent understanding of same. CLINICAL IMPRESSION: Acute URI ASSESSMENT/PLAN: 1. Sore throat - ICD9: 462, ICD10: J02.9 (primary diagnosis) - STREP A MOLECULAR (POC) 2. Acute URI - ICD9: 465.9, ICD10: J06.9 MDM Amount and/or Complexity of Data Reviewed Clinical lab tests: ordered and reviewed Risk of Complications, Morbidity, and/or Mortality Presenting problems: low Diagnostic procedures: low Management options: hilario Smith PA-C Allergies As of Date: 06/01/2024 Noted Allergy Reaction XYLOCAINE (LIDOCAINE HCL) 2007 10 - Anaphylaxis Comments: at the dentist , became weak and passed out POLYTRIM (POLYMYXIN B SULF-TRIMET*10/06 7 - Swelling Comments: eye drops, swelling and redness Date Reviewed: 06/01/2024 Reviewed by: Haley Aranda LPN - Fully Assessed Reason for Visit: Sore Throat [200] Cmt: ST x 2 days Primary Visit Diagnosis:Sore throat [J02.9] Other Visit Diagnosis:Acute URI [J06.9] Order(s):STREP A MOLECULAR (POC) [[id number]] Order #: [id number] #:[id number] Prescriptions as of 06/01/2024 - drospirenone-e.es tradiol-lm.FA (BEYAZ) 3-0.02-0.451 mg (24) tab Take 1 tablet by mouth once daily. - Cholecalciferol, Vitamin D3, 2,000 unit cap Take 1 capsule by mouth once daily. - VIT/IRON FUMARATE/FA ( ORAL) Take by mouth. 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] 09/19/2013 IUFD (intrauterine ) [HEM6566] 10/24/2013 Level of Service: OFFICE/OUTPATIENT NEW LOW MDM 30 MINUTES [74873] Encounter Status:Closed by ROGELIO SMITH on 06/01/24 Normal [facility] STREP A MOLECULAR (POC)on Procedural Control Valid [facility] Strep A (POCT) Negative Negative [facility] 12 Lead EKGon 09-01-2022 12 Lead EKG [facility] [address] [place] [address] 12 Lead EKG 09/01/22 0855 MR#: [id number] Acct: [id number] Name: HUMA ROLLE Rep #: [id number] : 1985 36 From: Lelo Masters MD Attending Dr: Status: DEP ER Ordering Dr: Karthikeyan Vasquez MD Date: 09/01/22 Location: ED Sex: F C Admitted: Test Reason : CP Blood Pressure : / mmHG Vent. Rate : 062 BPM Atrial Rate : 062 BPM P-R Int : 206 ms QRS Dur : 078 ms QT Int : 388 ms P-R-T Axes : 061 038 036 degrees QTc Int : 393 ms Normal sinus rhythm with sinus arrhythmia Normal ECG Confirmed by AISHA CARRASCO, CUCA ([id number]), purchase request editor ROSIBEL ZAVALA ([id number]) on 09/03/2022 11:24:08 AM Referred By: LUKASZ Confirmed By:NUSRAT MASTERS MD 09/03/22 1124 Date _ Lelo Masters MD CC: Dr. Brendan Rolle MD; Dr. Karthikeyan Vasquez MD Signed Normal [facility] Absolute lymphocyte countOrd ered By: Karthikeyan Vasquez on 09-01-2022 Lymphocytes Auto (Unsp spec) [#/Vol] 2.41 10*3/uL 0.83-4.51 [facility] Automated blood hematocrit ( percentage)Ordered By: Karthikeyan Vasquez on 09-01-2022 Hematocrit (Bld) [Volume fraction] 41.7 % Normal 37-47 [facility] Comment on above: Performed By: #### L 300.8000, L500.2500, L501.4020, L100.0100, L700.6800 #### [facility] [address] [place], [place], [id number] Basic Metabolic Profile (BMP )on 09-01-2022 BUN/CRE 20.4 RATIO High 10-20 [facility] Comment on above: Order Comment: 'TROP ' Serial specimen #1, #2 or #3: 1 Performed By: #### L 300.8000, L500.2500, L501.4020, L100.0100, L700.6800 #### [facility] [address] [place], [address] CA,Total 9.1 mg/dL Normal 8.5-10.1 [facility] Comment on above: Order Comment: 'TROP ' Serial specimen #1, #2 or #3: 1 Performed By: #### L 300.8000, L500.2500, L501.4020, L100.0100, L700.6800 #### [facility] [address] [place], [address] ECRCL 93.24 ml/min Normal [facility] Comment on above: Order Comment: 'TROP ' Serial specimen #1, #2 or #3: 1 Performed By: #### L 300.8000, L500.2500, L501.4020, L100.0100, L700.6800 #### [facility] [address] [place], [address] EST GFR - AA 124 mL/min Normal >60 [facility] Comment on above: Order Comment: 'TROP ' Serial specimen #1, #2 or #3: 1 Result Comment: Afri can Bel[place]ian GFR Calc Performed By: #### L 300.8000, L500.2500, L501.4020, L100.0100, L700.6800 #### [facility] [address] [place], [address] GAP 2 Low 5-15 [facility] Comment on above: Order Comment: 'TROP ' Serial specimen #1, #2 or #3: 1 Performed By: #### L 300.8000, L500.2500, L501.4020, L100.0100, L700.6800 #### [facility] [address] [place], [address] GFR/1.73 sq M.predicted among non-blacks MDRD (S/P/Bld) [Vol rate/Area] 102 mL/min/{1.73_m2} Normal >60 [facility] Comment on above: Order Comment: 'TROP ' Serial specimen #1, #2 or #3: 1 Result Comment: Non- GFR Calc Performed By: #### L 300.8000, L500.2500, L501.4020, L100.0100, L700.6800 #### [facility] [address] [place], [address] Basic Metabolic Profile (BMP )Ordered By: Karthikeyan Vasquez on 09-01-2022 CO2 [Moles/Vol] 26.0 mmol/L Normal 21.0-32.0 [facility] Comment on above: Order Comment: 'TROP ' Serial specimen #1, #2 or #3: 1 Performed By: #### L 300.8000, L500.2500, L501.4020, L100.0100, L700.6800 #### [facility] [address] [place], [address] Basophil percentageOrdered B y: Karthikeyan Vasquez on 09-01-2022 Chloride [Moles/Vol] 109 mmol/L High 98-107 [facility] Comment on above: Order Comment: 'TROP ' Serial specimen #1, #2 or #3: 1 Performed By: #### L 300.8000, L500.2500, L501.4020, L100.0100, L700.6800 #### [facility] [address] [place], [address] Glucose [Mass/Vol] 87 mg/dL Normal 74-106 [facility] Comment on above: Order Comment: 'TROP ' Serial specimen #1, #2 or #3: 1 Performed By: #### L 300.8000, L500.2500, L501.4020, L100.0100, L700.6800 #### [facility] [address] [place], [address] Potassium [Moles/Vol] 3.7 mmol/L Normal 3.5-5.1 [facility] Comment on above: Order Comment: 'TROP ' Serial specimen #1, #2 or #3: 1 Performed By: #### L 300.8000, L500.2500, L501.4020, L100.0100, L700.6800 #### [facility] [address] [place], [address] Sodium [Moles/Vol] 137 mmol/L Normal 136-145 [facility] Comment on above: Order Comment: 'TROP ' Serial specimen #1, #2 or #3: 1 Performed By: #### L 300.8000, L500.2500, L501.4020, L100.0100, L700.6800 #### [facility] [address] [place], [address] Basophils/100 WBC (Bld) 0.4 % Normal 0-1 [facility] Comment on above: Performed By: #### L 300.8000, L500.2500, L501.4020, L100.0100, L700.6800 #### [facility] [address] [place], [address] Eosinophils/100 WBC (Bld) 0.7 % Normal 0-5 [facility] Comment on above: Performed By: #### L 300.8000, L500.2500, L501.4020, L100.0100, L700.6800 #### [facility] [address] [place], [address] Neutrophils/100 WBC (Bld) 56.0 % Normal 47-70 [facility] Comment on above: Performed By: #### L 300.8000, L500.2500, L501.4020, L100.0100, L700.6800 #### [facility] [address] [place], [address] WBC (Bld) [#/Vol] 6.7 10*3/uL Normal 4.4-11.0 [facility] Comment on above: Performed By: #### L 300.8000, L500.2500, L501.4020, L100.0100, L700.6800 #### [facility] [address] [place], [address] Neutrophils (Bld) [#/Vol] 3.8 10*3/uL 2.0-7.7 [facility] Beta hCG serum qualOrdered B y: Karthikeyan Vasquez on 09-01-2022 Beta HCG ( test) Ql Negative [facility] Blood erythrocytes count (nu mber/volume)Ordered By: Karthikeyan Vasquez on 09-01-2022 RBC (Bld) [#/Vol] 4.60 10*6/uL Normal 4.2-5.4 [facility] Comment on above: Performed By: #### L 300.8000, L500.2500, L501.4020, L100.0100, L700.6800 #### [facility] [address] [place], [place], [id number] Blood hemoglobin measurement (mass/volume)Ordered By: Karthikeyan Vasquez on 09-01-2022 Hemoglobin (Bld) [Mass/Vol] 14.5 g/dL Normal 12.0-15. 0 [facility] Comment on above: Performed By: #### L 300.8000, L500.2500, L501.4020, L100.0100, L700.6800 #### [facility] [address] [facility] [place], [place], [id number] [phone] Blood lymphocytes/100 leukoc ytesOrdered By: Karthikeyan Vasquez on 09-01-2022 Lymphocytes/100 WBC (Bld) 35.9 % Normal 19-41 [facility] Comment on above: Performed By: #### L 300.8000, L500.2500, L501.4020, L100.0100, L700.6800 #### [facility] [address] [place], [place], [id number] [phone] Blood monocytes/100 leukocyt esOrdered By: Karthikeyan Vasquez on 09-01-2022 Monocytes/100 WBC (Bld) 6.6 % Normal 0-10 [facility] Comment on above: Performed By: #### L 300.8000, L500.2500, L501.4020, L100.0100, L700.6800 #### [facility] [address] [place], [place], [id number] [phone] Blood platelet mean volumeOr dered By: Karthikeyan Vasquez on 09-01-2022 Platelet mean volume (Bld) [Entitic vol] 8.8 fL Normal 6.2-12.0 [facility] Comment on above: Performed By: #### L 300.8000, L500.2500, L501.4020, L100.0100, L700.6800 #### [facility] [address] [place], [address] CBC W/Diff, Automatedon 07-0 Absolute Lymph 2.41 X10 3/uL Normal 0.83-4.51 [facility] Comment on above: Performed By: #### L 300.8000, L500.2500, L501.4020, L100.0100, L700.6800 #### [facility] [address] [place], [address] Absolute Neut 3.8 X10 3/uL Normal 2.0-7.7 [facility] Comment on above: Performed By: #### L 300.8000, L500.2500, L501.4020, L100.0100, L700.6800 #### [facility] [address] [place], [address] IG% 0.400 Normal 0.0-0.9 [facility] Comment on above: Result Comment: IG% - Immature Granulocytes (promyelocytes, myelocytes and metamyelocytes) > 1% indicates that a LEFT SHIFT is Present. Performed By: #### L 300.8000, L500.2500, L501.4020, L100.0100, L700.6800 #### [facility] [address] [place], [address] Nucleated RBC (Bld) [#/Vol] 0 10*3/uL Normal 0-5 [facility] Comment on above: Performed By: #### L 300.8000, L500.2500, L501.4020, L100.0100, L700.6800 #### [facility] [address] [place], [address] RDW SD 39.8 fl Normal 35.1-43.9 [facility] Comment on above: Performed By: #### L 300.8000, L500.2500, L501.4020, L100.0100, L700.6800 #### [facility] [address] [place], [address] CBC W/Diff, AutomatedOrdered By: Karthikeyan Vasquez on 09-01-2022 Erythrocyte distribution width (RBC) [Ratio] 12.1 % Normal 11.6-14.6 [facility] Comment on above: Performed By: #### L 300.8000, L500.2500, L501.4020, L100.0100, L700.6800 #### [facility] [address] [place], [address] MCH (RBC) [Entitic mass] 31.5 pg Normal 27.0-32.0 [facility] Comment on above: Performed By: #### L 300.8000, L500.2500, L501.4020, L100.0100, L700.6800 #### [facility] [address] [place], [address] Chest 1 View (Portable)on Chest 1 View (Portable) [facility] Imaging Services [address] [place] [address] Chest 1 View (Portable) MR#: [id number] Acct: [id number] Name: HUMA ROLLE Rep #: [id number] : 1985 F 36 From: Francisco garcia MD PCP: Dr. Brendan Rolle MD Status: PRE ER Study: Chest 1 View (Portable) Date of Exam: 09/01/22 Exam# [id number] Ordering Dr: Karthikeyan Vasquez MD STUDY: X-RAY CHEST REASON FOR EXAM: Female, 36 years old. Chest pain and chest tightness. TECHNIQUE: Single AP portable view of the chest. COMPARISON: None. _ FINDINGS: EKG electrodes are seen. The lungs are clear and expanded. There is no demonstrated pleural abnormality. Normal size heart. Normal mediastinum and ronald. Normal visualized pulmonary arteries. Normal visualized aortic arch and descending thoracic aorta. Normal visualized thoracic spine. Normal visualized ribs, clavicles, and shoulders. There is no demonstrated abnormality of the visualized soft tissue structures of the upper abdomen. _ RAD/Chest 1 View (Portable) IMPRESSION: Normal x-ray examination of the chest. Electronically Signed: Francisco Truong MD at 9:34 EDT Reading Location ID and State: [facility] / [place] , Service support , CC: Dr. Brendan Rolle MD; Dr. Karthikeyan Vasquez MD Pecan Cleaner: Signed Normal [facility] D-Dimer Quantitative (DVT/PE )on 09-01-2022 D-DIMER QUANT 0.30 FEU/ug/m Normal 0.27-0.49 [facility] Comment on above: Result Comment: NORM AL D-Dimer level (<0.50) indicates no DVT or PE. Performed By: #### L 300.8000, L500.2500, L501.4020, L100.0100, L700.6800 #### [facility] [address] [place], [place], [address] Determination of erythrocyte mean corpuscular volume (MCV)Ordered By: Karthikeyan Vasquez on 09-01-2022 MCV (RBC) [Entitic vol] 90.7 fL Normal 81-99 [facility] Comment on above: Performed By: #### L 300.8000, L500.2500, L501.4020, L100.0100, L700.6800 #### [facility] [address] [place], [place], [address] Emergency Department Summary on 09-01-2022 Emergency Department Summary [facility] Medical Records Department [address] [place] [address] Emergency Department Summary 09/01/22 MR#: [id number] Acct: [id number] Name: HUMA ROLLE Rep #: [id number] : 1985 36 From: Karthikeyan Vasquez MD PCP: Dr. Brendan Rolle MD Status:REG ER Location: ED HPI History of Present Illness Chief Complaint: Chest Pain Informant: patient and spouse/S.O. Onset/Context/Sami ing Onset: Today and Hours Activity at onset: gradual Timing: Intermittent Quality: Positive for Dull and Tightness Location: Left Parasternal and Left Chest Current Severity: Mild Maximum Severity: Mild Worsened By: Nothing Relieved By: Nothing Associated Symptoms: Negative for Nausea, Vomiting, Diaphoresis, Dyspnea, Cough, Fever, Lightheadedness, Acid Reflux or Palpitations Narrative Narrative: 36-year-old female without any significant past medical or surgical history. No prior history of DVT or PE. Prior history of pleurisy. Over the last week she flew to [place] and took [address] back. Denies any calf pain or swelling. No hemoptysis. Today she feels tightness and discomfort in her left chest. No radiation. Nothing particular makes the pain better or worse. She does not feel short of breath. She has had no hemoptysis. No cough or fever. Prior Similar Symptoms: No Recent Illness/Hospitali zation: No CVD Risk Factors: Negative for Hypertension, Diabetes, Hypercholesterole moise, Family History 1' or Smoking PE Risk Factors: Positive for Recent Travel/Surgery; Negative for Recent Immobilization, Prior DVT or PE, Cancer or OCP + Smoking + >/=35 TAD Risk Factors: Negative for Marfan's Syndrome [facility] Medical History Abnormal chest CT Asthma Cough Gastroesophageal reflux Migraines paresthesia right ulnar hand Pleurisy Pleuritic chest pain Pneumonia Seasonal allergic rhinitis Medical History no medical history Home Medications albuterol sulfate 90 mcg/actuation aerosol inhaler (ProAir HFA) 2 puff inhalation Q6H PRN breathing 06/22/17 [History Last Taken Unknown] fluticasone propionate 50 mcg/actuation nasal spray,suspension (Flonase Allergy Relief) 1 spray intranasal QDAY 06/22/17 [History Last Taken Unknown] loratadine 10 mg tablet (Allergy Relief (loratadine)) 10 mg PO QDAY 06/22/17 [History Last Taken Unknown] norethindrone-e.e stradiol triphasic 0.5 mg/0.75 mg/1 mg-35 mcg tablet (Pirmella) 1 tab PO QDAY 06/22/17 [History Last Taken Unknown] omeprazole 40 mg capsule,delayed release 40 mg PO QDAY 06/22/17 [History Last Taken Unknown] diclofenac sodium 0.1 % eye drops 1 drp EACH EYE Q6H 3 days #2.5 mL 07/19/22 [Rx Last Taken Unknown] Allergy/AdvReac Type Severity Reaction Status Date / Time polymyxin B sulfate Allergy Swelling Verified 09/01/22 09:00 [From Polytrim] trimethoprim [From Polytrim] Allergy Swelling Verified 09/01/22 09:00 Family History Father Diabetes Hypertension Grandmother Breast cancer Grandfather Heart disease CVA (cerebral vascular accident) Grandmother Myeloma Grandfather Hypertension Surgical History History of bronchoscopy Social History Smoking Status: Never smoker second hand exposure: No alcohol intake: never substance use type: does not use ROS ROS ED ROS Narrative Chest discomfort. Review of Systems ROS Unobtainable: Denies due to encephalopathy Constitutional Constitutional ED: Denies chills or fever(s) Eyes Eyes: Reports none ENT ENT ED: Denies ear pain, rhinorrhea or sore throat Cardiovascular Cardiovascular: Reports as per HPI and chest pain; Denies orthopnea, palpitations, paroxysmal nocturnal dyspnea or racing heartbeat Respiratory/Chest Respiratory/Chest : Denies cough, dyspnea, dyspnea on exertion, orthopnea, paroxysmal nocturnal dyspnea or sputum Gastrointestinal Gastrointestinal: Denies abdominal pain Genitourinary Genitourinary ED: Denies dysuria or hematuria Integumentary Denies abscess Neurologic Neurologic: Denies headache(s) Psychiatric Psychiatric: Denies anxiety Endocrine Endocrinology: Denies cold intolerance Hematologic/Lymph atic Hematologic/Lymph atic: Denies easy bleeding or easy bruising Allergic/Immunolo gic Allergic/Immunolo gic ED: Denies mouth swelling or tongue swelling EXAM Physical Exam Narrative Exam Narrative: Well-appearing 36-year-old female. Vital signs are stable and she is afebrile. Patient does not look septic toxic or in distress. Significant other at bedside. H EENT exam is unremarkable. Neck is nontender. Lungs are clear equal symmetrical bilaterally. Heart regular rate and rhythm no murmur. Chest wall nontender. No ecchy (more content not included)... Normal [facility] L501.4020on 09-01-2022 TROPONIN-I HS < 3 Low 3.0-54.0 [facility] Comment on above: Order Comment: 'TROP ' Serial specimen #1, #2 or #3: 1 Result Comment: Angelica patel Note: New Test Units and Gender Specific Reference Ranges. For more information see Policy Stat Procedure [place] High Sensitivity Troponin (TNIH) and attachments. Performed By: #### L 300.8000, L500.2500, L501.4020, L100.0100, L700.6800 #### [facility] [address] [place], [address] Laboratory - Chemistry and C hemistry - challengeOrdered By: Karthikeyan Vasquez on 09-01-2022 Urea nitrogen/Creatinine [Mass ratio] 20.4 mg/mg 10-20 [facility] - Hematology and Cell countsOrdered By: Karthikeyan Vasquez on 09-01-2022 Erythrocyte distribution width (RBC) [Entitic vol] 39.8 fL 35.1-43.9 [facility] Immature granulocytes/100 WBC (Bld) 0.400 % 0.0-0.9 [facility] Comment on above: IG% - Immature Granu locytes (promyelocytes, myelocytes and metamyelocytes) > 1% indicates that a LEFT SHIFT is Present. Nucleated RBC/100 WBC (Bld) [Ratio] 0 % 0-5 [facility] MCHC [Mass/volume] by Automa efraín countOrdered By: Karthikeyan Vasquez on 09-01-2022 MCHC (RBC) [Mass/Vol] 34.8 g/dL Normal 32-36 [facility] Comment on above: Performed By: #### L 300.8000, L500.2500, L501.4020, L100.0100, L700.6800 #### [facility] [address] [place], [place], [id number] No Panel InformationOrdered By: Karthikeyan Vasquez on 09-01-2022 D-Dimer Quantitative (PE/DVT) 0.30 FEU/ug/m 0.27-0.49 [facility] Comment on above: NORMAL D-Dimer level (<0.50) indicates no DVT or PE. Estimated Creatinine Clearance Calc 93.24 ml/min [facility] Estimated GFR (MDRD) Amer 124 mL/min >60 [facility] Comment on above: GFR Calc Estimated GFR (MDRD) Non-Af Amer 102 mL/min >60 [facility] Comment on above: Non- GFR Calc Troponin I High Sensitivity < 3 pg/mL 3.0-54.0 [facility] Comment on above: Please Note: New Joan t Units and Gender Specific Reference Ranges. For more information see Policy Stat Procedure [place] High Sensitivity Troponin (TNIH) and attachments. Platelets bldOrdered By: David Vasquez on 09-01-2022 Platelets (Bld) [#/Vol] 209 10*3/uL Normal 150-450 [facility] Comment on above: Performed By: #### L 300.8000, L500.2500, L501.4020, L100.0100, L700.6800 #### [facility] [address] [place], [place], [id number] ,Serum,hCG Quali.on 09-01-2022 HCG, SERUM QUAL Negative Normal [facility] Comment on above: Performed By: #### L 300.8000, L500.2500, L501.4020, L100.0100, L700.6800 #### [facility] [address] [place], [address] Serum or plasma calcium rolf urement (mass/volume)Ordered By: Karthikeyan Vasquez on 09-01-2022 Calcium [Mass/Vol] 9.1 mg/dL 8.5-10.1 [facility] Serum or plasma creatinine m easurement (mass/volume)Ordered By: Karthikeyan Vasquez on 09-01-2022 Creatinine [Mass/Vol] 0.69 mg/dL Normal 0.55-1.02 [facility] Comment on above: The validity of the calculated GFR & GFRAA in patients over 70 years has not been determined. Clinical correlation is essential. Order Comment: 'TROP ' Serial specimen #1, #2 or #3: 1 Result Comment: The validity of the calculated GFR GFRAA in patients over 70 years has not been determined. Clinical correlation is essential. Performed By: #### L 300.8000, L500.2500, L501.4020, L100.0100, L700.6800 #### [facility] [address] [place], [address] Serum or plasma urea nitroge n measurement (mass/volume)Ordered By: Karthikeyan Vasquez on 09-01-2022 Urea nitrogen [Mass/Vol] 14 mg/dL Normal 7-18 [facility] Comment on above: Order Comment: 'TROP ' Serial specimen #1, #2 or #3: 1 Performed By: #### L 300.8000, L500.2500, L501.4020, L100.0100, L700.6800 #### [facility] [address] [place], [place], [id number] Thin prep Papanicolaou smear with manual screeningOrdered By: Karthikeyan Vasquez on 09-01-2022 Thin prep Papanicolaou smear with manual screening 2 5-15 [facility] Strep A (Throat Rapid LAURA)on 07-21-2022 S. pyogenes Ag IA Ql (Unsp spec) A Disk (Conf. Cult) Beta Hemolytic Strep NOT Group A Rapid Strep A Screen NEGATIVE Normal [facility] Comment on above: Performed By: #### M 100.676 #### [facility] [address] [place], [place], [id number] Emergency Department Summary on 07-19-2022 Emergency Department Summary [facility] Medical Records Department [address] [place] [address] Emergency Department Summary 07/19/22 MR#: [id number] Acct: [id number] Name: HUMA ROLLE Ari Rep #: [id number] : 1985 36 From: Carl Wilkinson MD PCP: Dr. Brendan Rolle MD Status:DEP ER Location: ED HPI History of Present Illness Chief Complaint: Eye Problem Narrative Narrative: Patient presents with bilateral eye irritation. Patient started with sore throat on Thursday. She was seen at urgent care that day. They did strep test which was negative. It sounds like they gave her a dose of Decadron once. Her sore throat got better but is now starting to come back. He is not having fevers or coughing. She does have nasal congestion runny nose. About a day after she was seen she started to get irritation in her eye. It started in her right eye. She had been out at a baseball game with her children. The next day that both eyes were involved. They are tearing. They are burning and itching a bit. They are not really having visual loss. They do have some discharge. She states that 2 or 3 days ago her eyes were swollen shut. But she can open them well now. She was seen again in urgent care. They gave her ofloxacin eyedrops. But she is wondering if these might be more irritating to her eyes. She had an issue with eye irritation from Polytrim eyedrops when she was a child. Patient also works as a business technology teacher. She did not go to school yesterday but reportedly 5 children in her class were out with some issues that she thinks was related to eyes. Patient has a history of some allergies and does have nasal congestion but her symptoms overall seem different to her than allergies. [facility] Medical History Abnormal chest CT Asthma Cough Gastroesophageal reflux Migraines paresthesia right ulnar hand Pleurisy Pleuritic chest pain Pneumonia Seasonal allergic rhinitis Home Medications albuterol sulfate 90 mcg/actuation aerosol inhaler (ProAir HFA) 2 puff inhalation Q6H PRN breathing 06/22/17 [History Last Taken Unknown] fluticasone propionate 50 mcg/actuation nasal spray,suspension (Flonase Allergy Relief) 1 spray intranasal QDAY 06/22/17 [History Last Taken Unknown] loratadine 10 mg tablet (Allergy Relief (loratadine)) 10 mg PO QDAY 06/22/17 [History Last Taken Unknown] norethindrone-e.e stradiol triphasic 0.5 mg/0.75 mg/1 mg-35 mcg tablet (Pirmella) 1 tab PO QDAY 06/22/17 [History Last Taken Unknown] omeprazole 40 mg capsule,delayed release 40 mg PO QDAY 06/22/17 [History Last Taken Unknown] diclofenac sodium 0.1 % eye drops 1 drp EACH EYE Q6H 3 days #2.5 mL 07/19/22 [Rx Last Taken Unknown] Allergy/AdvReac Type Severity Reaction Status Date / Time polymyxin B sulfate Allergy Swelling Verified 12/27/15 11:26 [From Polytrim] trimethoprim [From Polytrim] Allergy Swelling Verified 12/27/15 11:26 Family History Father Diabetes Hypertension Grandmother Breast cancer Grandfather Heart disease CVA (cerebral vascular accident) Grandmother Myeloma Grandfather Hypertension Surgical History History of bronchoscopy Social History Smoking Status: Never smoker second hand exposure: No alcohol intake: never substance use type: does not use ROS ROS ED Constitutional Constitutional ED: Denies chills, fever(s) or sweats Eyes Eyes: Reports other Details: History of present illness ENT ENT ED: Reports rhinorrhea, sore throat and other Details: Nasal congestion also. See history of present illness. Cardiovascular Cardiovascular: Denies chest pain Respiratory/Chest Respiratory/Chest : Denies cough or dyspnea Gastrointestinal Gastrointestinal: Denies nausea or vomiting Musculoskeletal Musculoskeletal: Denies myalgias Integumentary Denies rash Neurologic Neurologic: Denies headache(s) Hematologic/Lymph atic Hematologic/Lymph atic: Denies easy bleeding or easy bruising Allergic/Immunolo gic Allergic/Immunolo gic ED: Denies urticaria EXAM Physical Exam Narrative Exam Narrative: Patient is awake alert. No acute distress. Sitting comfortably in bed. HEENT shows no erythema or rash anywhere on her face ears or nose. No vesicles. There is some mild nasal congestion. Throat has minimal erythema but no exudate or swelling. Voice is normal. No sinus tenderness. Eyes do show bilateral conjunctival injection and mild inflammation. There is increased tearing. There is no actual discharge right now although she has had some. I see no stye. Cornea looks quite clear. Pupil is normal reactive to light and accommodates. There is no notable photophobia using a light. (more content not included)... Normal [facility] Throat Streptococcus pyogene s antigen detection by immunofluorescenceOrdered By: Carl Wilkinson on 07-19-2022 S. pyogenes Ag IF Ql (Throat) [facility] Office Visit: cough & HX abn ormal chest CTon 12-02-2016 Protein mass conc Done Invalid Interpretation Code [facility] Work Phone: Tobacco smoking status NHIS Never Inva lid Interpretation Code [facility] Work Phone: Tobacco smoking status NHIS Never smoker Inva lid Interpretation Code [facility] Work Phone: Microbiology: RESPIRATORY PA PAMELA MOLECULARon 04-25-2016 RP PANEL . Invalid Interpretation Code [facility] Phone: Microbiology: Culture, Fungu s 8482on 04-10-2016 Fungus identified Cx Nom (Skin) . Invalid Interpretation Code [facility] Work Phone: Microbiology: Culture, Body Fluidon 03-05-2016 CUBF . Invalid Interpretation Code [facility] Phone: Lab Report: Body Fluid Cell Count+Diffon 02-29-2016 Appearance Nom (Body fld) CLEAR Invali d Interpretation Code [facility] Work Phone: COLOR/BF COLORLESS Invalid Interpretation Code [facility] Work Phone: Lymphocytes/100 WBC Auto (Bld) 33 % Invalid Interpretation Code [facility] Work Phone: MONO/BF 14 % Invalid Interpretation Code [facility] Work Phone: PMN 24 % Invalid Interpretation Code [facility] Work Phone: RBC Manual cnt #/vol (Body fld) 110 /mm3 Invalid Interpretation Code [facility] Work Phone: SOURCE/BF BRONCHIAL LAVAGE Invalid Interpretation Code [facility] Work Phone: WBC Manual cnt #/vol (Body fld) 515 /mm3 Invalid Interpretation Code [facility] Work Phone: Replaced Document: (P) Body Fluid Cell Count+Diffon 02-29-2016 BFTC# Test not performed 10 3/ul Invalid Interpretation Code 0.000-0.000 [facility] Work Phone: Microbiology: Culture, Sputu mon 02-28-2016 Bacteria identified Respiratory culture Nom (Sput) . Invalid Interpretation Code [facility] Work Phone: Lab Report: Basic Metabolic Profile (BMP)on 02-26-2016 Anion gap 4 molar conc 4 Low 5-15 [facility] Work Phone: Calcium mass conc 8.5 mg/dL Invalid Interpretation Code 8.5-10.1 [facility] Work Phone: Chloride molar conc 107 mmol/L Invalid Interpretation Code 98-107 [facility] Work Phone: CO2 ppres (BldV) 28.0 mmol/L Invalid Interpretation Code 21.0-32.0 [facility] Work Phone: Creatinine mass conc 0.64 mg/dL Invalid Interpretation Code 0.55-1.02 [facility] Work Phone: EST GFR - AA 140 mL/min Invalid Interpretation Code >60 [facility] Work Phone: GFR/1.73 sq M predicted among non-blacks MDRD vol rate/area (S/P/Bld) 115 mL/min/{1.73_m2} Invalid Interpretation Code >60 [facility] Work Phone: Glucose mass conc 88 mg/dL Invalid Interpretation Code 70-110 [facility] Work Phone: Potassium molar conc 3.7 mmol/L Invalid Interpretation Code 3.5-5.1 [facility] Work Phone: Sodium molar conc 139 mmol/L Invalid Interpretation Code 136-145 [facility] Work Phone: Urea nitrogen mass conc 12 mg/dL Invalid Interpretation Code 7-18 [facility] Work Phone: Urea nitrogen/Creatinine mass ratio 18.7 RATIO Invalid Interpretation Code 10-20 [facility] Work Phone: Vital Signs Date Time Vital Sign Value Performing Clinician Facility 06-01-2024 19:17-0400 Body temperature 98.4 [degF] Rogelio Clutter PA-C Work Phone: [facility] 06-01-2024 19:17-0400 Body weight 67.7 kg Rogelio Clutter PA-C Work Phone: [facility] 06-01-2024 19:17-0400 Diastolic blood pressure 76 mm[Hg] Rogelio Clutter PA-C Work Phone: [facility] 06-01-2024 19:17-0400 Heart rate 84 /min Rogelio Clutter PA-C Work Phone: [facility] 06-01-2024 19:17-0400 Respiratory rate 16 /min Rogelio Clutter PA-C Work Phone: [facility] 06-01-2024 19:17-0400 SaO2% (BldA) [Mass fraction] 97 % Rogelio Clutter PA-C Work Phone: [facility] 06-01-2024 19:17-0400 Systolic blood pressure 118 mm[Hg] Rogelio Clutter PA-C Work Phone: [facility] 09-01-2022 11:24-0400 Body temperature 97.8 [degF] [facility] 09-01-2022 11:24-0400 Diastolic blood pressure 78 mm[Hg] [facility] 09-01-2022 11:24-0400 Heart rate 67 /min [facility] 09-01-2022 11:24-0400 Respiratory rate 14 /min [facility] 09-01-2022 11:24-0400 SaO2% (BldA) [Mass fraction] 99 % [facility] 09-01-2022 11:24-0400 Systolic blood pressure 126 mm[Hg] [facility] 09-01-2022 08:56-0400 Body height 160.02 cm [facility] 09-01-2022 08:56-0400 Body mass index (BMI) [Ratio] 28.2 kg/m2 [facility] 09-01-2022 08:56-0400 Body weight 72.3 kg [facility] 07-19-2022 06:59-0400 Body temperature 97 [degF] [facility] 07-19-2022 06:59-0400 Diastolic blood pressure 73 mm[Hg] [facility] 07-19-2022 06:59-0400 Heart rate 73 /min [facility] 07-19-2022 06:59-0400 Respiratory rate 16 /min [facility] 07-19-2022 06:59-0400 SaO2% (BldA) [Mass fraction] 97 % [facility] 07-19-2022 06:59-0400 Systolic blood pressure 104 mm[Hg] [facility] 07-19-2022 05:16-0400 Body mass index (BMI) [Ratio] 25.8 kg/m2 [facility] 07-19-2022 05:16-0400 Body weight 66.1 kg [facility] 12-02-2016 06:45-0400 BMI (Body Mass Index) 23.03 kg/m2 Natalya Sandoval LPN [facility] Work Phone: 12-02-2016 06:45-0400 Body Temperature 97.5 [degF] Natalya Sandoval LPN [facility] Work Phone: 12-02-2016 06:45-0400 BP Diastolic 75 mm[Hg] Natalya Sandoval LPN [facility] Work Phone: 12-02-2016 06:45-0400 BP Systolic 114 mm[Hg] Natalyadonavon Sandoval LPN [facility] Work Phone: 12-02-2016 06:45-0400 Height 160.02 cm Natalya Sandoval LPN [facility] Work Phone: 12-02-2016 06:45-0400 Pulse (Heart Rate) 60 /min Natalya Sandoval LPN [facility] Work Phone: 12-02-2016 06:45-0400 Respiratory Rate 18 /min Natalya Sandoval MARKETING CONSULTANT [facility] Phone: 12-02-2016 06:45-0400 Weight 58.97 kg Natalya Sandoval MARKETING CONSULTANT [facility] Phone: 06-05-2016 07:55-0400 Pulse (Heart Rate) 75 /min Natalya Sandoval MARKETING CONSULTANT [facility] Work Phone: 04-24-2016 13:42-0500 Body Temperature 97.16 [degF] Natalya Sandoval MARKETING CONSULTANT [facility] Work Phone: 04-24-2016 13:42-0500 BSA (Body Surface Area) 1.58 m2 Natalya Sandoval MARKETING CONSULTANT [facility] Phone: 04-24-2016 13:42-0500 Height 160.02 cm Natalya Sandoval MARKETING CONSULTANT [facility] Phone: 04-24-2016 13:42-0500 Weight 56.36 kg Natalya Sandoval MARKETING CONSULTANT [facility] Phone: Encounters Encounter Date Encounter Type Care Provider Facility Start: 01-07-2025 End: 01-07-2025 ambulatory SELF Facility:[facility] Start: 06-01-2024 End: 06-01-2024 ambulatory BRENDAN ROLLE Facility:[facility] Start: 06-01-2024 End: 06-01-2024 Office outpatient new 30 minutes Rogelio Smith PA-C Work Phone: [facility] Comment on above: Sore throat (Primary Dx); Acute URI Start: 09-01-2022 End: 09-01-2022 Emergency department patient visit Karthikeyan Vasquez Facility:[facility] Start: 09-01-2022 End: 09-01-2022 Emergency department patient visit [facility] Work Phone: Start: 07-19-2022 End: 07-19-2022 Emergency department patient visit Brendan Rolle Facility:[facility] Start: 07-19-2022 End: 07-19-2022 Emergency department patient visit [facility] Work Phone: Procedures Date Procedure Procedure Detail Performing Clinician Start: 06-01-2024 STREP A MOLECULAR (POC) Vishal Wade METAPHYSICISTThiSUBSTANCE ABUSE THERAPIST Work Phone: Start: 09-01-2022 Plain chest X-ray Start: 07-19-2022 Streptococcus pyogen es antigen assay Start: 06-05-2016 End: 12-04-2016 SHANAE Zarco DO Work Phone: Start: 06-05-2016 End: 12-04-2016 Follow Up Appt 6 months Mckinley Zarco DO Work Phone: Start: 05-05-2016 End: 05-07-2016 Ct thorax w/o contrast material Shanelle Alfaro SUBSTANCE ABUSE THERAPIST Work Phone: Start: 04-24-2016 End: 04-25-2016 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 spmtry w/admn agt Shanelle Alfaro SUBSTANCE ABUSE THERAPIST Work Phone: Start: 04-24-2016 End: 04-25-2016 SHANAE Kaplan BATCHMAKER Work Phone: Start: 04-24-2016 End: 04-25-2016 Follow Up Appt 1 month Shanelle santiago SUBSTANCE ABUSE THERAPIST Work Phone: Start: 04-24-2016 End: 04-25-2016 Respiratory pathogens DNA and RNA 12b panel - Unspecified specimen by LOVE with probe detection Shanelle Alfaro SUBSTANCE ABUSE THERAPIST Work Phone: Start: 03-11-2016 End: 12-04-2016 SHANAE Zarco DO Work Phone: Start: 03-11-2016 End: 12-04-2016 Follow Up Appt 6 weeks Mckinley Zarco DO Work Phone: Start: 02-26-2016 End: 02-26-2016 *BMP Shanelle Kaplan BATCHMAKER Work Phone: Start: 02-26-2016 End: 02-27-2016 Bacteria identified in Sputum by Respiratory culture Shanelle Alfaro SUBSTANCE ABUSE THERAPIST Work Phone: Start: 02-26-2016 End: 02-27-2016 CSM Shanelle Alfaro C BATCHMAKER Work Phone: Start: 02-26-2016 End: 02-27-2016 Ct thorax w/contrast material Shanelle Alfaro SUBSTANCE ABUSE THERAPIST Work Phone: Start: 02-26-2016 End: 02-27-2016 Follow Up Appt 2 weeks Shanelle santiago SUBSTANCE ABUSE THERAPIST Work Phone: Start: 02-26-2016 End: 02-27-2016 Respiratory pathogens DNA and RNA 12b panel - Unspecified specimen by LOVE with probe detection Shanelle Alfaro SUBSTANCE ABUSE THERAPIST Work Phone: Start: 02-12-2016 End: 02-12-2016 Demo&/eval of pt utiliz aersl gen/neb/inhlr/ip Mckinley Keanrey Haroldo DO Work Phone: Start: 02-12-2016 End: 03-03-2016 DMB Mckinleysherron Zarco DO Work Phone: Start: 02-12-2016 End: 03-03-2016 Follow Up Appt 1 month Mckinley Zarco Work Phone: Start: 02-12-2016 End: 03-03-2016 Pulmonary Function Test - complete Mckinley Zarco DO Work Phone: Plan of Treatment Date Care Activity Detail Author Start: 11-01-2023 Covid-19 Vaccine ( season) Covid-19 Vaccine ( season) [facility] Start: 11-01-2023 Influenza vaccination Influenza Vaccine (#1) [facility] Start: 12-17-2022 Urine microalbumin profile DTaP,Tdap,Td Vaccine (9 - Td or Tdap) [facility] Start: 09-01-2022 [facility] Start: 06-02-2017 End: 06-02-2017 Appointment Appointment [facility] Work Phone: Start: 12-02-2016 End: 12-02-2016 DMB DMB [facility] Phone: Start: 12-02-2016 End: 12-02-2016 Follow Up Appt 6 months Follow Up Appt 6 months [facility] Phone: Start: 12-02-2016 End: 12-02-2016 Gastroenterology Referral Gastroenterology Referral [facility] Phone: Start: 06-05-2016 End: 12-04-2016 DMB DMB [facility] Phone: Start: 06-05-2016 End: 12-04-2016 Follow Up Appt 6 months Follow Up Appt 6 months [facility] Phone: Start: 05-25-2016 Screening for malignant neoplasm of cervix Cervical Cancer Screening [facility] Start: 05-05-2016 End: 05-07-2016 Ct thorax w/o contrast material CT Chest without contrast [facility] Phone: Start: 04-24-2016 End: 04-25-2016 Cholesterol mass conc Methylcholine inhalation challenge [facility] Phone: Start: 04-24-2016 End: 04-25-2016 DMB DMB [facility] Phone: Start: 04-24-2016 End: 04-25-2016 Follow Up Appt 1 month Follow Up Appt 1 month [facility] Phone: Start: 04-24-2016 End: 04-25-2016 Respiratory pathogens DNA and RNA 12b panel - Unspecified specimen by LOVE with probe detection *Respiratory Panel [facility] Phone: Start: 03-11-2016 End: 12-04-2016 DMB DMB [facility] Phone: Start: 03-11-2016 End: 12-04-2016 Follow Up Appt 6 weeks Follow Up Appt 6 weeks [facility] Work Phone: Start: 02-26-2016 End: 02-26-2016 *BMP *BMP [facility] Phone: Start: 02-26-2016 End: 02-27-2016 Bacteria identified Respiratory culture Nom (Sput) *CUSP - Culture Sputum [facility] Phone: Start: 02-26-2016 End: 02-27-2016 CSM CSM [facility] Phone: Start: 02-26-2016 End: 02-27-2016 Ct thorax w/contrast material CT Chest with Contrast [facility] Phone: Start: 02-26-2016 End: 02-27-2016 Follow Up Appt 2 weeks Follow Up Appt 2 weeks [facility] Phone: Start: 02-26-2016 End: 02-27-2016 Respiratory pathogens DNA and RNA 12b panel - Unspecified specimen by LOVE with probe detection *Respiratory Panel [facility] Phone: Start: 02-12-2016 End: 03-03-2016 DMB DMB [facility] Phone: Start: 02-12-2016 End: 03-03-2016 Follow Up Appt 1 month Follow Up Appt 1 month [facility] Phone: Start: 02-12-2016 End: 03-03-2016 Pulmonary Function Test - complete Pulmonary Function Test - complete [facility] Phone: Start: 10-08-2003 Annual PCP Team Chronic Disease Visit Annual PCP Team Chronic Disease Visit [facility] Start: 10-08-2003 Anxiety Screening Anxiety Screening [facility] Start: 10-08-2003 Depression Screening Depression Screening [facility] Start: 10-08-2003 Hepatitis C screening Hepatitis C Screening [facility] Start: 10-08-2003 Spirometry Spirometry [facility] Patient Education [facility] Phone: Patient referral [facility] Work Phone: Immunizations Immunization Date Immunization Notes Care Provider Carina bowers 10-25-2013 RHO(D) immune globul in- IV or IM Rogelio Smith PA-C Work Phone: [facility] 07-11-2008 typhoid vaccine, unspecified formulation Rogelio Smith PA-C Work Phone: [facility] 02-17-2006 tuberculin skin test ; purified protein derivative solution, intradermal Rogelio DODD-C Work Phone: [facility] Work Phone: 09-13-2004 meningococcal polysaccharide vaccine (MPSV4) Rogelio DODD-C Work Phone: [facility] 07-08-2004 diphtheria and tetan us toxoids, adsorbed for pediatric use Rogelio Smith PA-C Work Phone: [facility] 05-26-2000 hepatitis B vaccine, pediatric or pediatric/adolescent dosage Rogelio Smith PA-C Work Phone: [facility] 12-23-1999 hepatitis B vaccine, pediatric or pediatric/adolescent dosage Rogelio DODD-C Work Phone: [facility] 11-13-1999 hepatitis B vaccine, pediatric or pediatric/adolescent dosage Rogelio Smith PA-C Work Phone: [facility] 11-02-1998 measles, mumps and rubella virus vaccine Rogelio Smith PA-C Work Phone: [facility] 01-30-1998 diphtheria and tetan us toxoids, adsorbed for pediatric use Rogelio DODD-C Work Phone: [facility] 10-21-1990 diphtheria, tetanus toxoids and acellular pertussis vaccine Rogelio DODD-C Work Phone: [facility] 10-21-1990 poliovirus vaccine, inactivated Rogelio Smith WI-C Work Phone: [facility] 03-02-1990 chicken pox (disease) Rogelio DODD-C Work Phone: [facility] Work Phone: 07-19-1987 haemophilus influenz ae type b vaccine, HbOC conjugate Rogelio Clutter PA-C Work Phone: [facility] 05-02-1987 diphtheria, tetanus toxoids and acellular pertussis vaccine Rogelio Clutter PA-C Work Phone: [facility] 05-02-1987 poliovirus vaccine, inactivated Rogelio Clutter PA-C Work Phone: [facility] 01-15-1987 measles, mumps and rubella virus vaccine Rogelio Clutter PA-C Work Phone: [facility] 05-16-1986 diphtheria, tetanus toxoids and acellular pertussis vaccine Rogelio Clutter PA-C Work Phone: [facility] 02-09-1986 diphtheria, tetanus toxoids and acellular pertussis vaccine Rogelio Clutter PA-C Work Phone: [facility] 02-09-1986 poliovirus vaccine, inactivated Rogelio Clutter PA-C Work Phone: [facility] 1985 diphtheria, tetanus toxoids and acellular pertussis vaccine Rogelio Clutter PA-C Work Phone: [facility] Work Phone: 1985 poliovirus vaccine, inactivated Rogelio Clutter PA-C Work Phone: [facility] Payers Date Payer Category Payer Self-pay [id number] 2022 Self-pay [id number] 2008 Unknown [employer] [id number] Unknown [id number] Unknown [id number] Social History Date Type Detail Facility Start: 09-01-2022 Tobacco smoking status NHIS Unknown if ever smoked [facility] Start: 1985 Sex Assigned At Female W [facility] Tobacco smoking status NHIS Never smoked tobacco [facility] Start: 06-01-2024 Alcoholic beverage intake Current non-drinker of alcohol (finding) [facility] Start: 06-01-2024 History of Social function [facility] Start: 06-01-2024 Tobacco use panel [facility] Start: 1985 Sex assigned at Not on file [facility] NEGATED: Highlighted row [facility] Functional Status Date Assessment Result Facility 11-17-2013 Are you deaf, or do you have serious difficulty hearing No 11/17/2013 4:08 PM Chayo Soliman LPN No [facility] 11-17-2013 Are you blind, or do you have serious difficulty seeing, even when wearing glasses No 11/17/2013 4:08 PM Chayo Soliman LPN No [facility] 11-17-2013 Do you have serious difficulty walking or climbing stairs No 11/17/2013 4:08 PM Chayo Soliman LPN No [facility] 11-17-2013 Do you have difficul ty dressing or bathing No 11/17/2013 4:08 PM Chayo Soliman LPN No [facility] 11-17-2013 Because of a physica l, mental, or emotional condition, do you have difficulty doing errands alone such as visiting a physician's office or shopping No 11/17/2013 4:08 PM Chayo Soliman LPN No [facility] Mental Status Date Assessment Result Facility 09-01-2022 Cognitive function Voice/Name [facility] Work Phone: 11-17-2013 Because of a physica l, mental, or emotional condition, do you have serious difficulty concentrating, remembering, or making decisions No 11/17/2013 4:08 PM Chayo Soliman LPN No [facility] Progress note 01-07-2025 Note Date & Type Note Facility 01-07-2025 Note HNO ID: [id number] Author: MONIE ROSAS APRN.SUBSTANCE ABUSE THERAPIST Service: ? Author Type: Nurse Practitioner Type: Progress Notes Filed: 01/07/2025 10:19 Note Text: [facility] Subjective Huma Rolle is a 39 year old female. Patient presents with: Cough: Chest congestion, productive cough x1.5 weeks Cough The patient is a 39-year-old female presenting with worsening cough and congestion for over a week. The patient reports that her symptoms began as a mild cold but have progressively worsened over the past week. She is now experiencing persistent cough with significant sputum production, which is keeping her up at night and preventing her from sleeping. She also reports feeling very congested and unable to breathe well. She has not measured her temperature but suspects she may have had fevers in the mornings. This morning, she noticed her lips were swollen. She has been using an albuterol inhaler as needed, which she typically uses only when sick. She has also been taking an yten-jai-qtonnnc mucolytic and tried a nighttime cough syrup last night, but it did not relieve her symptoms. She has used nasal steroids such as Flonase and Nasacort in the past when prescribed, and reports that her symptoms have often only improved after starting antibiotics. She denies significant seasonal allergies. She recalls a lung infection 8-10 years ago, after which she was told she might have prolonged symptoms after colds. She denies a formal asthma diagnosis and uses her inhaler only when sick. She has not used prednisone recently. She is allergic to eye drops and lidocaine. No one else at home is currently sick, though she thinks her daughter may be starting to get sick today. She is concerned about her worsening symptoms because she has a trip to [place] planned for this coming Thursday. She is hoping to recover in time for the trip and is worried about her symptoms getting worse. Review of Systems Respiratory: Positive for cough. Constitutional: (+) insomnia Ears/Nose/Mouth/Throat: (-) sore throat Respiratory: (+) cough, (+) sputum production, (+) dyspnea Skin: (+) lip swelling PAST MEDICAL HISTORY Diagnosis Date Complication of anesthesia PAST SURGICAL HISTORY Procedure Laterality Date PAST SURGICAL HISTORY OF nono ALLERGIES Xylocaine [Lidocaine Hcl] and Polytrim [Polymyxin B Sulf-Trimethoprim] MEDICATIONS albuterol HFA (PROVENTIL HFA, VENTOLIN HFA) 90 mcg/actuation inhaler Inhale 2 puffs as instructed every 4 hours as needed for wheezing/shortness of breath. amoxicillin-clavulanate potassium (AUGMENTIN) 875-125 mg per tablet Take 1 tablet by mouth every 12 hours for 7 days. drospirenone-e.estradiol-lm.FA (BEYAZ) 3-0.02-0.451 mg (24) tab Take 1 tablet by mouth once daily. (Patient not taking: Reported on 06/01/2024) Cholecalciferol, Vitamin D3, 2,000 unit cap Take 1 capsule by mouth once daily. (Patient not taking: Reported on 06/01/2024) VIT/IRON FUMARATE/FA ( ORAL) Take by mouth. (Patient not taking: Reported on 06/01/2024) ALBUTEROL 90 MCG/ACTUATION AEROSOL INHALER 1-2 puffs every 4 hours as needed for wheezes (Patient not taking: Reported on 06/01/2024) FAMILY HISTORY Problem Relation Age of Onset Breast Cancer Maternal Grandmother Heart Paternal Grandfather SOCIAL HISTORY[1] Objective BP 124/82 Pulse 81 Temp 36.6 ?C (97.9 ?F) Resp 18 Wt 71.2 kg (156 lb 15.5 oz) LMP 04/01/2013 SpO2 100% Physical Exam Constitutional: General: She is not in acute distress. Appearance: Normal appearance. She is normal weight. She is not ill-appearing or toxic-appearing. HENT: Head: Normocephalic and atraumatic. Right Ear: Ear canal and external ear normal. A middle ear effusion is present. Left Ear: Ear canal and external ear normal. A middle ear effusion is present. Nose: Mucosal edema, congestion and rhinorrhea present. Right Sinus: Maxillary sinus tenderness and frontal sinus tenderness present. Left Sinus: Maxillary sinus tenderness and frontal sinus tenderness present. Mouth/Throat: Pharynx: Uvula midline. Posterior oropharyngeal erythema and postnasal drip present. Tonsils: No tonsillar exudate or tonsillar abscesses. Cardiovascular: Rate and Rhythm: Normal rate and regular rhythm. Heart sounds: Normal heart sounds, S1 normal and S2 normal. Pulmonary: Effort: Pulmonary effort is normal. Breath sounds: Normal breath sounds. No decreased breath sounds, wheezing, rhonchi or rales. Neurological: Mental Status: She is alert. General: No acute distress. HEENT: Oropharynx inflamed. Resp: Lungs clear to auscultation, no wheezing. { 1. Sinobronchitis (J32.9) 2. Acute cough (R05.1) - Worsening cough with significant sputum production and upper airway inflammation; history of similar episodes following viral URIs. - Lungs clear on exam; no wheezing appreciated. No signs of pneumonia or reactive airway. (more content not included)... [facility] Progress note 06-01-2024 Note Date & Type Note Facility 06-01-2024 Note HNO ID: [id number] Author: ROGELIO SMITH PA-C Service: ? Author Type: Physician [employer]penters Type: Progress Notes Filed: 06/01/2024 19:38 Note Text: This note was created using [employer] Subjective Huma Rolle is a 38 year old female. Patient is a 38-year-old female complains of congestion, sore throat and cough that she has been experiencing for the past 2 days. Patient denies fever, chills or myalgia. 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 Sore Throat Associated symptoms include congestion and coughing. Review of Systems HENT: Positive for congestion and sore throat. Respiratory: Positive for cough. All other systems reviewed and are negative. Objective BP 118/76 Pulse 84 Temp 36.9 ?C (98.4 ?F) (Tympanic) Resp 16 Wt 67.7 kg (149 lb 4 oz) LMP 04/01/2013 SpO2 97% Physical Exam Vitals and nursing note reviewed. Constitutional: Appearance: Normal appearance. She is normal weight. HENT: Head: Normocephalic and atraumatic. Right Ear: Tympanic membrane, ear canal and external ear normal. Left Ear: Tympanic membrane, ear canal and external ear normal. Nose: Nose normal. Mouth/Throat: Mouth: Mucous membranes are moist. Pharynx: Oropharynx is clear. Eyes: Extraocular Movements: Extraocular movements intact. Conjunctiva/sclera: Conjunctivae normal. Pupils: Pupils are equal, round, and reactive to light. Cardiovascular: Rate and Rhythm: Normal rate and regular rhythm. Pulses: Normal pulses. Heart sounds: Normal heart sounds. Pulmonary: Effort: Pulmonary effort is normal. Breath sounds: Normal breath sounds. Musculoskeletal: Cervical back: Normal range of motion and neck supple. Skin: General: Skin is warm and dry. Capillary Refill: Capillary refill takes less than 2 seconds. Neurological: General: No focal deficit present. Mental Status: She is alert and oriented to person, place, and time. Psychiatric: Mood and Affect: Mood normal. Behavior: Behavior normal. Thought Content: Thought content normal. Judgment: Judgment normal. Assessment and Plan Physical exam findings as noted above. Rapid strep test is negative. Supportive care instructions were discussed and the patient verbalizes excellent understanding of same. CLINICAL IMPRESSION: Acute URI ASSESSMENT/PLAN: 1. Sore throat - ICD9: 462, ICD10: J02.9 (primary diagnosis) - STREP A MOLECULAR (POC) 2. Acute URI - ICD9: 465.9, ICD10: J06.9 MDM Amount and/or Complexity of Data Reviewed Clinical lab tests: ordered and reviewed Risk of Complications, Morbidity, and/or Mortality Presenting problems: low Diagnostic procedures: low Management options: low Rogelio Smith PA-C [facility] History of Present illness Narrative 06-01-2024 Rogelio Smith PA-C - 06/01/2024 7:21 PM EDT Note Date & Type Note Facility 06-01-2024 History of Presen t illness Narrative This note was created using [employer] Subjective Huma Rolle is a 38 year old female. Patient is a 38-year-old female complains of congestion, sore throat and cough that she has been experiencing for the past 2 days. Patient denies fever, chills or myalgia. 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 Sore Throat Associated symptoms include congestion and coughing. Review of Systems HENT: Positive for congestion and sore throat. Respiratory: Positive for cough. All other systems reviewed and are negative. Objective BP 118/76 Pulse 84 Temp 36.9 C (98.4 F) (Tympanic) Resp 16 Wt 67.7 kg (149 lb 4 oz) LMP 04/01/2013 SpO2 97% Physical Exam Vitals and nursing note reviewed. Constitutional: Appearance: Normal appearance. She is normal weight. HENT: Head: Normocephalic and atraumatic. Right Ear: Tympanic membrane, ear canal and external ear normal. Left Ear: Tympanic membrane, ear canal and external ear normal. Nose: Nose normal. Mouth/Throat: Mouth: Mucous membranes are moist. Pharynx: Oropharynx is clear. Eyes: Extraocular Movements: Extraocular movements intact. Conjunctiva/sclera: Conjunctivae normal. Pupils: Pupils are equal, round, and reactive to light. Cardiovascular: Rate and Rhythm: Normal rate and regular rhythm. Pulses: Normal pulses. Heart sounds: Normal heart sounds. Pulmonary: Effort: Pulmonary effort is normal. Breath sounds: Normal breath sounds. Musculoskeletal: Cervical back: Normal range of motion and neck supple. Skin: General: Skin is warm and dry. Capillary Refill: Capillary refill takes less than 2 seconds. Neurological: General: No focal deficit present. Mental Status: She is alert and oriented to person, place, and time. Psychiatric: Mood and Affect: Mood normal. Behavior: Behavior normal. Thought Content: Thought content normal. Judgment: Judgment normal. Assessment and Plan Physical exam findings as noted above. Rapid strep test is negative. Supportive care instructions were discussed and the patient verbalizes excellent understanding of same. CLINICAL IMPRESSION: Acute URI ASSESSMENT/PLAN: 1. Sore throat - ICD9: 462, ICD10: J02.9 (primary diagnosis) - STREP A MOLECULAR (POC) 2. Acute URI - ICD9: 465.9, ICD10: J06.9 MDM Amount and/or Complexity of Data Reviewed Clinical lab tests: ordered and reviewed Risk of Complications, Morbidity, and/or Mortality Presenting problems: low Diagnostic procedures: low Management options: hilario Smith PA-C documented in this encounter [facility] Discharge summary 09-01-2022 Note Date & Type Note Facility 09-01-2022 Discharge summary Note Date/Time September 01, 2022 9:14a m [facility] Medical Records Department [address] [place] [address] Emergency Department Summary 09/01/22 MR#: [id number] Acct: [id number] Name: HUMA ROLLE Rep #:[id number] : 1985 36 From: Karthikeyan Vasquez MD PCP: Dr. Brendan Rolle MD Status:REG ER Location: ED HPI History of Present Illness Chief Complaint: Chest Pain Informant: patient and spouse/S.O. Onset/Context/Timing Onset: Today and Hours Activity at onset: gradual Timing: Intermittent Quality: Positive for Dull and Tightness Location: Left Parasternal and Left Chest Current Severity: Mild Maximum Severity: Mild Worsened By: Nothing Relieved By: Nothing Associated Symptoms: Negative for Nausea, Vomiting, Diaphoresis, Dyspnea, Cough,Fever, Lightheadedness, Acid Reflux or Palpitations Narrative Narrative: 36-year-old female without any significant past medical or surgical history. Noprior history of DVT or PE. Prior history of pleurisy. Over the last week she flew to [place] and took [address] back. Denies any calf pain or swelling. No hemoptysis. Today she feels tightness and discomfort in her left chest. No radiation. Nothing particular makes the pain better or worse. She does not feel short of breath. She has had no hemoptysis. No cough or fever. Prior Similar Symptoms: No Recent Illness/Hospitalization: No CVD Risk Factors: Negative for Hypertension, Diabetes, Hypercholesterolemia, Family History 1' </=55 or Smoking PE Risk Factors: Positive for Recent Travel/Surgery; Negative for Recent Immobilization, Prior DVT or PE, Cancer or OCP + Smoking + >/=35 TAD Risk Factors: Negative for Marfan's Syndrome [facility] Medical History Abnormal chest CT Asthma Cough Gastroesophageal reflux Migraines paresthesia right ulnar hand Pleurisy Pleuritic chest pain Pneumonia Seasonal allergic rhinitis Medical History no medical history Home Medications albuterol sulfate 90 mcg/actuation aerosol inhaler (ProAir HFA) 2 puff inhalation Q6H PRN breathing 06/22/17 [History Last Taken Unknown] fluticasone propionate 50 mcg/actuation nasal spray,suspension (Flonase Allergy Relief) 1 spray intranasal QDAY 06/22/17 [History Last Taken Unknown] loratadine 10 mg tablet (Allergy Relief (loratadine)) 10 mg PO QDAY 06/22/17 [History Last Taken Unknown] norethindrone-e.estradiol triphasic 0.5 mg/0.75 mg/1 mg-35 mcg tablet (Pirmella)1 tab PO QDAY 06/22/17 [History Last Taken Unknown] omeprazole 40 mg capsule,delayed release 40 mg PO QDAY 06/22/17 [History Last Taken Unknown] diclofenac sodium 0.1 % eye drops 1 drp EACH EYE Q6H 3 days #2.5 mL 07/19/22 [Rx Last Taken Unknown] Allergy/AdvReac Type Severity Reaction Status Date / Time polymyxin B sulfate Allergy Swelling Verified 09/01/22 09:00 [From Polytrim] trimethoprim [From Polytrim] Allergy Swelling Verified 09/01/22 09:00 Family History Father Diabetes Hypertension Grandmother Breast cancer Grandfather Heart disease CVA (cerebral vascular accident) Grandmother Myeloma Grandfather Hypertension Surgical History History of bronchoscopy Social History Smoking Status: Never smoker second hand exposure: No alcohol intake: never substance use type: does not use ROS ROS ED ROS Narrative Chest discomfort. Review of Systems ROS Unobtainable: Denies due to encephalopathy Constitutional Constitutional ED: Denies chills or fever(s) Eyes Eyes: Reports none ENT ENT ED: Denies ear pain, rhinorrhea or sore throat Cardiovascular Cardiovascular: Reports as per HPI and chest pain; Denies orthopnea, palpitations, paroxysmal nocturnal dyspnea or racing heartbeat Respiratory/Chest Respiratory/Chest: Denies cough, dyspnea, dyspnea on exertion, orthopnea, paroxysmal nocturnal dyspnea or sputum Gastrointestinal Gastrointestinal: Denies abdominal pain Genitourinary Genitourinary ED: Denies dysuria or hematuria Integumentary Denies abscess Neurologic Neurologic: Denies headache(s) Psychiatric Psychiatric: Denies anxiety Endocrine Endocrinology: Denies cold intolerance Hematologic/Lymphatic Hematologic/Lymphatic: Denies easy bleeding or easy bruising Allergic/Immunologic Allergic/Immunologic ED: Denies mouth swelling or tongue swelling EXAM Physical Exam Narrative Exam Narrative: Well-appearing 36-year-old female. Vital signs are stable and she is afebrile. Patient does not look septic toxic or in distress. Significant other at bedside. H EENT exam is unremarkable. Neck is nontender. Lungs are clear equal symmetrical bilaterally. Heart regular rate and rhythm no murmur. Chest wall nontender. No ecchymosis or bruising. No redness or warmth. Abdomen is soft and nontender. Moving all 4 extremities. Calves are nontender without edema or cords. No swelling. Radial pulses are equal symmetrical. Back is nontender neurologic exam she is awake alert. No focal motor deficits. Very benign exam. Pulse ox 100% on room air no hypoxia. Const Vital Signs: 09/01/22 08:56 09/01/22 09:11 Temperature 98.2 F Temperature Source Oral Pulse Rate 57 L Respiratory Rate 16 Blood Pressure 133/86 H Blood Pressure Mean 101 Pulse Ox 100 Oxygen Delivery Method Room Air Room Air Positive well nourished and well developed; Negative for obese, cachectic, contractures or unkempt General Appearance ED: well developed and NAD; Negative for unkempt, cachectic, contractures or pallor Nutritional Appearance: Negative for cachectic or obese HEENT Reports moist mucous membranes normocephalic and atraumatic; Negative for trauma or tenderness Eyes PERRL and EOMs intact bilaterally General Eye ED: Negative for pale conjunctiva or scleral icterus Neck no lymphadenopathy, supple and no JVD General: Negative for tenderness Chest Wall inspection of chest normal and palpation of chest normal Chest: Negative for tenderness Resp normal respiratory effort and clear to auscultation bilaterally Effort and Inspection: Negative for respiratory distress Auscultation: Negative for rales, rhonchi or wheezes Cardio regular rate, regular rhythm, S1 normal heart sound, S2 normal heart sound and no murmurs Peripheral Pulses: pulses 2+ throughout GI normal to inspection, nondistended, normoactive bowel sounds, soft to palpation,non-tender, non-distended and no masses Auscultation: Negative for hyperactive bowel sounds Back/Spine no CVA tenderness and no thoracic nor lumbar tenderness General Back: Negative for CVA tenderness Cervical Spine: Negative for cervical spine tenderness Extremity normal to inspection General Extremety ED: Negative for edema General Extremity: Negative for edema Neuro oriented x3 and CN's II-XII intact bilaterally Sensorium / Orientation: awake, alert, oriented to person, oriented to place andoriented to time; Negative for confused, lethargic or stuporous Motor Exam: strength 5/5 throughout Psych mental status grossly normal Appearance: Negative for unkempt Attitude: No agitated Mood & Affect: Negative for depressed, anxious or tearful Skin no rashes or lesions noted and no wounds General Skin Exam: Negative for jaundice or pallor Rashes: No rashes noted Trauma: Negative for abrasion or laceration Heart Score History: Slightly/Non-Suspicious ECG: Normal Age: </= 45 years Risk Factors: No Risk Factors Troponin: </= Normal Limit Score: 0 MDM MDM MDM Narrative Medical decision making narrative: 36-year-old female no seen past medical history with atypical left-sided, nonreproducible chest discomfort. Vital signs are stable. Unlikely to be cardiac given her age and no significant past medical history or risk factors. She is a non-smoker. Unlikely to be a pulmonary embolus but possible due to herrecent travel without her only risk factor and she has never had a DVT or PE. She is not on any hormone replacement or control pills. Possibly could bepleurisy but is not really pleuritic in nature. There is no reproducible chest wall pain. She has no symptoms or signs of an infection at this time. Cardiac work-up will be done. She will have a D-dimer. Repeat exam patient is doing well at 10:40 AM. She and her went over all of her test results. Clinically looks good. I do not think she needs any further testing. I explained to them that this this may be pleurisy. Her musculoskeletal. Tylenol Motrin for pain. Return if worse or follow-up if not improving. History & Record Review Discussion w/independent historian: Patient Additional record(s) reviewed:: Prior inpatient record, Prior outpatient record,Prior ED visit and Prior labs Lab Data Attestation: I reviewed the patient's lab results. Lab results narrative: CBC unremarkable. White count of 6.7. H&H of 14 and 41. Platelets 209. Electrolytes show a gap of 2. Normal BUN and creatinine. Glucose is 87. Troponin is less than 3. test negative. D-dimer is 0.3 and negative. Labs: Laboratory Results - last 24 hr 09/01/22 09:00 WBC 6.7 RBC 4.60 Hgb 14.5 Hct 41.7 MCV 90.7 MCH 31.5 MCHC 34.8 RDW Std Deviation 39.8 RDW Coeff of Joy 12.1 Plt Count 209 MPV 8.8 Immature Gran % (Auto) 0.400 Neut % (Auto) 56.0 Lymph % (Auto) 35.9 [place] % (Auto) 6.6 Eos % (Auto) 0.7 Baso % (Auto) 0.4 Absolute Neuts (auto) 3.8 Absolute Lymphs (auto) 2.41 Nucleated RBC % 0 D-Dimer Quant (PE/DVT) 0.30 Sodium 137 Potassium 3.7 Chloride 109 H Carbon Dioxide 26.0 Anion Gap 2 L BUN 14 Creatinine 0.69 Estim Creat Clear Calc 93.24 Est GFR (MDRD) Af Amer 124 Est GFR (MDRD) Non-Af 102 BUN/Creatinine Ratio 20.4 H Glucose 87 Calcium 9.1 Troponin I High Sens < 3 L Serum , Qual NEGATIVE Radiography Chest X-Ray - ED: Read by ED Physician, Read by Radiologist, Heart, Lungs, Mediastinum, Bony Structures and No Acute Disease Diagnostic Testing: Clinical Impression(s) from Imaging Studies Chest X-Ray 09/01/22 09:07 IMPRESSION: Normal x-ray examination of the chest. Electronically Signed: Francisco Truong MD at 9:34 EDT , Chest x-ray, portable, single view interpreted both by myself and the radiologist shows no acute abnormality. Normal lungs bilaterally. Normal cardiac silhouette mediastinum. No infiltrate. No pneumothorax. No acute bonyabnormalities. Rhythm Strip Rhythm Strip: Sinus Rhythm Rate: 62 Ectopy: None EKG Initial EKG: Attestation: I personally reviewed and interpreted this EKG as follows: Interpretation: Sinus Rhythm and No Acute Injury Pattern Comments: Normal sinus rhythm rate of 62 no acute signs of CO or ischemia. No S1Q3T3. No old EKG available. Prior EKG tracings: available for review Discharge Plan Triage Chief Complaint: Chest Pain ED Provider: Karthikeyan Vasquez Dx/Rx/DC Orders Clinical Impression: Chest pain Instructions: ED Chest Pain, Uncertain Cause Prescriptions: No Action albuterol sulfate [ProAir HFA] 90 mcg/actuation HFA aerosol inhaler 2 puff INHALATION Q6H PRN (Reason: breathing) norethin-e.estradiol triphasic [Pirmella] 0.5/0.75/1 mg- 35 mcg tablet 1 tab PO QDAY omeprazole 40 mg capsule,delayed release(/EC) 40 mg PO QDAY fluticasone propionate [Flonase Allergy Relief] 50 mcg/actuation spray,suspension 1 spray INTRANASAL QDAY loratadine [Allergy Relief (loratadine)] 10 mg tablet 10 mg PO QDAY diclofenac sodium 0.1 % drops 1 drp EACH EYE Q6H 3 Days Qty: 2.5 0RF Primary Care Provider: Brendan Rolle Referrals: Brendan Rolle MD [Primary Care Provider] - 1 Week if not improving Activity Restrictions/Additional Instructions: All your test today were normal including blood counts, electrolytes, kidney function, heart enzymes and D-dimer which was negative which goes against this being a blood clot. Chest x-ray and EKG were normal. Motrin and Tylenol for discomfort. Follow-up if not improving. Disposition Disposition: Home, Self Care What to do if you have Problems For any increased pain, shortness of breath, bleeding, nausea or vomiting, chestpain, or any unexpected problems, contact your Primary Care Provider. Call [facility] ([phone]) or report to the closest Emergency Room. Call 911 if necessary. 09/01/22 1046 <Electronically signed by Karthikeyan Vasquez MD> Cosigner Signature (if applicable): CC: Dr. Brendan Rolle MD ~ Signed [facility] Work Phone: Evaluation note Note Date & Type Note Facility Evaluation note No assessment information availa ble [facility] Work Phone: Evaluation note Note Date & Type Note Facility Evaluation note Diagnosis Sore throat- Primary Acute pharyngitis Acute URI Acute upper respiratory infections of unspecified site documented in this encounter [facility] Discharge instructions Note Date & Type Note Facility Hospital Discharge instructions Additional Instructions All your test today were normal including blood counts, electrolytes, kidney function, heart enzymes and D-dimer which was negative which goes against this being a blood clot. Chest x-ray and EKG were normal. Motrin and Tylenol for discomfort. Follow-up if not improving. [facility] Work Phone: Chief Complaint and Reason for Visit Chief Complaint eye chest pain Family History No Family History Records Found Relationship Condition Age at Onset Recorded Date/T gladis father Diabetes mellitus Unknown Hypertension Unknown grandmother Malignant neoplasm of breast Unknown grandfather Cardiac disease Unknown Cerebrovascular accident (CVA) Unknown grandmother Multiple myeloma Unknown grandfather Hypertension Unknown Advance Directives No Advanced Directives Records Found Advance Directive Response Recorded Date/ Time Advance Directives No January 8:31am Living Will No September 01, 2022 9 :00am Power of Analytics Analyst No September 01, 2022 9:00am Summary Purpose Additional Source Comments Care Teams (unrecognized sec tion and content) Team Status: Active Member Role Status Dates Dr. Brendan Rolle MD Family Provider Active Dr. Brendan Rolle MD Primary Care Provider Active Team Status: Inactive Member Role Status Dates Dr. Brendan Rolle MD Primary Care Provider Active Dr. Carl Wilkinson MD Attending Provider, Emergency Provider Active Team Status: Inactive Member Role Status Dates Dr. Brendan Rolle MD Primary Care Provider Active Dr. Karthikeyan Vasquez MD Emergency Provider Active Art Studio Teacher Relationship Specialty Start Date End Date Brendan Rolle MD [address] [place] [address] PCP - General Family Medicine 06/01/24 Goals (unrecognized section and content) Goals may be documented in a n alternate section INFORMATION SOURCE (unrecogn ized section and content) DATE CREATED AUTHOR 09/06/2022 [facility] DATE CREATED AUTHOR AUTHOR'S ARIN ATION 01/08/2025 [facility] Source Comments (unrecognize d section and content) In the event this informatio n is protected by the Federal Confidentiality of Alcohol and Drug Abuse Patient Records regulations: The Federal rules restrict any use of the information to criminally investigate or prosecute any alcohol or drug abuse patient.[facility] Reason for Visit (unrecogniz ed section and content) Reason Comments Sore Throat ST x 2 days FOR RECORDS PERTAINING TO PATIENTS WHO ARE OR HAVE BEEN ENROLLED IN A CHEMICAL DEPENDENCY/SUBSTANCEABUSE PROGRAM, SOME INFORMATION MAY BE OMITTED. This clinical summary was aggregated from multiple sources. Caution should be exercised in using it in the provision of clinical care. This summary normalizes information from multiple sources, and as a consequence, information in this document may materially change the coding, format and clinical context of patient data. In addition, data may be omitted in some cases. CLINICAL DECISIONS SHOULD BE BASED ON THE PRIMARY CLINICAL RECORDS. [facility] [employer] [facility]. provides no warranty or guarantee of the accuracy or completeness of information in this document.
== END | disposition home or self-care (01) ==
LOC: MTRAD 14:19
PROVIDERS: PCP Family Medicine; Referring Provider Family Medicine; Visit Provider Family Medicine
DX: R05.9 Cough, unspecified (principal)
CPT/HCPCS: 71046